=== PATIENT | female | born 1935 | race Caucasian/White ===

== ENCOUNTER 2016-12-29 06:54 | Day surgery (SDC) | payer MEDICARE, OTHER ==
[~2016-12-29] VITALS: Ht 165.1 cm; Wt 68.0 kg
[~2016-12-29 06:54] MED LIST: AZULFIDINE500 MG PO; CALTRATE 600600 MG PO; CENTRUM SILVER1 EAC3 PO; FISH OIL 1,0001 EAC2 PO; LEVOTHYROXINE75 MCG PO; LISINOPRIL2.5 MG PO; NORCO 5-325 TA1 EACH PO; VITAMIN C500 M1 PO
--- NOTE | 2016-12-29 10:04 | NUR ---
12[facility]29/16 [facility]4 [facility].
--- NOTE | 2017-02-03 10:25 | OR ---
[facility] [address] [place], [place] [address] Signed DATE OF PROCEDURE: 12/29/16 PREOPERATIVE DIAGNOSIS: Chronic ulcerative colitis. POSTOPERATIVE DIAGNOSES: Pancolitis, not acutely ulcerated or severely inflamed. No evidence of neoplasia. PROCEDURE: Total colonoscopy to cecum with biopsy. SURGEON: Abby Bermudez MD ANESTHESIA: Intravenous sedation, Fentanyl 100 mcg, Versed 6 mg. INDICATION A 81-year-old white woman, who is well known to me from the past. She is a patient of Dr. Rolando Carmona. She has had ulcerative colitis for many years. Her last colonoscopy was 3 years ago, showing no signs of dysplasia. Certain dietary and emotional triggers can make her symptoms recur with diarrhea, but she has had really no bleeding. She is taking Azulfidine 200 mg tablet three times daily and aggregate. She is here for surveillance colonoscopy on the basis of her chronic ulcerative colitis for greater than 20 years. Understands the risk of bleeding, infection, perforation, and so on. FINDINGS The prep was good. Complete colonoscopy was undertaken to the cecum. She clearly had chronic inflammatory changes, but no sign of ulceration proper, nor sign of neoplasia. Disease activity seemed worse in the cecum and right colon than in the left and rectum, but the entire colon was involved in fact. DESCRIPTION OF PROCEDURE The patient was brought to the endoscopy suite and placed in a lateral decubitus position. Given intravenous sedation to avoid slurred speech and nystagmus. Digital rectal examination was normal. An Olympus video colonoscope was passed in the rectum and manipulated throughout the colon, ultimately intubated in cecum itself. The prep was good. Irrigation was undertaken as necessary. The cecum appeared to have a dull chronic inflammatory appearance with no visualization of submucosal blood vessels and so on. Biopsies were obtained there. The scope was carefully withdrawn. Similar findings were noted throughout the remaining colon, though less pronounced in the rectum and sigmoid. Biopsies were taken throughout the colon to assess for dysplasia. Retroflex view was Electronically Signed By: ABBY BERMUDEZ MD 02/03/17 1025 PATIENT NAME: ZAKI ARZATE OPERATIVE REPORT DATE OF : 39 PHYSICIAN: ABBY BERMUDEZ MD REPORT #: [id number] REPORT IS CONFIDENTIAL AND NOT TO BE RELEASED WITHOUT AUTHORIZATION [facility] [address] [place] [id number] Signed normal except for some internal hemorrhoidal changes. The scope was removed. The patient was taken to recovery room in good condition. CONCLUDING DIAGNOSIS Chronic ulcerative colitis. No evidence of neoplasia development. PLAN Await pathology report for biopsies, unlikely to show dysplasia. She will continue with her current medical regimen for ulcerative colitis. We will see her back in a year and follow up sooner if needed. She will return to the ongoing care of Dr. Carmona. MD EVELYN Oviedo/Ishmael /[id number] cc: Rolando Carmona MD Electronically Signed By: ABBY BERMUDEZ MD 02/03/17 1025 PATIENT NAME: ZAKI ARZATE OPERATIVE REPORT DATE OF : 39 PHYSICIAN: ABBY BERMUDEZ MD REPORT #: [id number] REPORT IS CONFIDENTIAL AND NOT TO BE RELEASED WITHOUT AUTHORIZATION
== END 2016-12-29 10:41 | disposition home or self-care (01) ==
LOC: DS 06:54 → OPS 06:54 → DS 08:00 → OPS 10:41
PROVIDERS: Surgery
PROC: 0DBP8ZX Excision of Rectum, Via Natural or Artificial Opening Endoscopic, Diagnostic (ICD-10-PCS; 2016-12-29)
PROC: 0DBN8ZX Excision of Sigmoid Colon, Via Natural or Artificial Opening Endoscopic, Diagnostic (ICD-10-PCS; 2016-12-29)
PROC: 0DBG8ZX Excision of Left Large Intestine, Via Natural or Artificial Opening Endoscopic, Diagnostic (ICD-10-PCS; 2016-12-29)
PROC: 0DBL8ZX Excision of Transverse Colon, Via Natural or Artificial Opening Endoscopic, Diagnostic (ICD-10-PCS; 2016-12-29)
PROC: 0DBH8ZX Excision of Cecum, Via Natural or Artificial Opening Endoscopic, Diagnostic (ICD-10-PCS; principal; 2016-12-29 08:00)
DX: K52.832 Lymphocytic colitis (principal); K62.1 Rectal polyp; I10 Essential (primary) hypertension; E03.9 Hypothyroidism, unspecified; Z85.3 Personal history of malignant neoplasm of breast; Z87.891 Personal history of nicotine dependence; Z98.890 Other specified postprocedural states
CPT/HCPCS: 99152; 99153; J2250; J3010; J7120

== ENCOUNTER 2020-08-11 10:24 | Inpatient (IN) | payer MEDICARE, OTHER ==
[~2020-08-11] VITALS: Ht 165.1 cm; Wt 63.5 kg
--- OUTSIDE RECORDS SUMMARY | 2020-08-11 10:26 | XMS ---
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 Isra has no Care Guidelines for this patient. Damion VISIT COUNT (12 MO.) 1 VAISHALI Ruiz TOTAL 1 NOTE: Visits indicate total known visits. ED/C VISIT TRACKING (12 MO.) 08/11/2020 10:25 VAISHALI [place] TYPE: Emergency COMPLAINT: - SOB INPATIENT VISIT TRACKING (12 MO.) No inpatient visits to display in this time frame [email or web address]
[2020-08-11] MEDS ORDERED: LISINOPRIL10 MG PO (10:37)
[2020-08-11] MEDS ORDERED: LEVOTHYROXINE100 MCG PO (12:11)
--- NOTE | 2020-08-11 14:06 | NUR ---
PT ARRIVED TO UNIT VIA STRETCHER WITH LEAH PAYNE RN. REPORT RECEIVED. IV POTASSIUM CURRENTLY INFUSING. PT C/O BURNING LEFT ARM. ICE PACK PROVIDED. IV IN LAC AND RFA PATENT AND FLUSHING WELL. D5 NS INFUSING INTO LFA IV. BP ELEVATED @ 181/75, PT GIVEN 20 MG PO LISINOPRIL, HR 80'S.
--- NOTE | 2020-08-11 14:15 | NUR ---
PT STATES SHE FEELS LIKE SHE NEEDS TO HAVE A BM. THIS RN HELPED UP TO BSC, PT APPEARS STEADY ON FEET. DENIES DIZZINESS OR SOB. VOIDED 300 MLS CLEAR YELLOW URINE. PT UNABLE TO HAVE BM. SPENCER IN TO COMPLETE ECHOCARDIAGRAM. NO FURTHER NEEDS AT THIS TIME.
--- NOTE | 2020-08-11 15:31 | NUR ---
SECOND BAG OF IV POTASSIUM 10 MEQ INFUSING IN LAC IV. ICE PACK TO SITE HAS RELIEVED SOME OF THE PT'S PAIN. ECHO COMPLETED. PT RESTING IN BED. BP SLIGHTLY IMPROVED @ 163/75. PT REPORTS MILD GENERALIZED BODY ACHES. LUNG SOUNDS CLEAR BUL, COARSE BLL. PT SATING 98% ON 2 L NC. REPORTS FEELING INCREASED SOB W/ EXERTION. NO EDEMA NOTED IN BLE. VSS. PT REMAINS AFEBRILE. RESTING IN BED, CALL LIGHT IN REACH. CALLS APPROPRIATELY.
--- NOTE | 2020-08-11 17:00 | NUR ---
EVENING ASSESSMENT COMPLETE. DINNER ORDERED. PT HAS BEEN UP TO BATHROOM TO VOID. UNMEASURED. SBA, MINIMAL ASSISTANCE. DESATURATED TO 85% ON RA. BACK ON 1 L NC SATING 98%. PT GIVEN TYLENOL FOR GENERALIZED BODY ACHES. REMAIN AFEBRILE. FAMILY UPDATED BY RESCUE INSTRUCTORTAMMI. RESTING IN BED. ABLE TO ADJUST SELF WITH EASE. CALL LIGHT IN REACH.
--- NOTE | 2020-08-11 19:25 | NUR ---
SHIFT REPORT RECEIVED FROM IHSAN AVELAR. PT RESTING IN BED, WATCHING TV. NC @ 1L. SPO2 97%. SR @ 74. IV FLUIDS INFUSING PER ORDER. NO OTHER NEEDS AT THIS TIME. CALL LIGHT IN REACH.
--- NOTE | 2020-08-11 20:00 | NUR ---
DAUGHTER KEITH CALLED AND REQUESTED TO BRING IN PT'S CELL PHONE AND GLASSES TOMORROW PER PT.
--- NOTE | 2020-08-11 20:30 | NUR ---
ASSESSMENT, VS AND I&O COMPLETED. GCS 15, A&O X4. PT STATES SHE FEELS "VERY TIRED. i'VE NEVER FELT LIKE THIS." PT UP TO BR, SBA, BACK TO BED. SOB WITH ACTIVITY, SPO2 DROPS TO HIGH 80s ON 1L NC. LUNGS CLEAR IN UPPER LOBES, COURSE CRACKLES IN LOWER LOBES. ABD SOFT, NONTENDER, PT STATES NORMAL, BOWEL TONES ACTIVE. HEART TONES REGULAR, SR @ 74. IVs WNL, CDI, FLUSHED WELL. LEFT AC INFUSING IV FLUIDS ORDERED, LEFT FA SALINE LOCKED. CMS INTACT. NO EDEMA NOTED. PT PROVIDED IS AND ACCAPELLA WITH EDUCATION. URINE SAMPLE SENT TO LAB. SCHEDULED MED PROVIDED. PT DENIES PAIN AT THIS TIME. ASSISTED PT TO CALL DAUGHTERKEITH. ICE WATER PROVIDED. NO OTHER NEEDS AT THIS TIME. CALL LIGHT IN REACH.
--- NOTE | 2020-08-11 21:45 | NUR ---
PT RESTING IN BED, EYES CLOSED. RR 18, EVEN, UNLABORED. NC @ 1L. CALL LIGHT IN REACH.
--- NOTE | 2020-08-11 23:00 | NUR ---
PT RESTING IN BED, EYES CLOSED. RR 16, EVEN, UNLABORED ON 1L NC. IV FLUIDS INFUSING PER ORDER. CALL LIGHT IN REACH.
--- NOTE | 2020-08-12 00:15 | NUR ---
PT ASSESSMENT, VS AND I&O COMPLETED. PT DECLINES THE NNED TO USE BR AT THIS TIME. GCS 15, A&O X4. PT STATES SHE HAS 5/10 GENERALIZED PAIN, PRN PAIN MED PROVIDED. IVs WNL, CDI, IV FLUIDS INFUSING PER ORDER IN L AC. LUNGS CLEAR IN UPPER LOBES, COURSE CRACKLES IN LOWER LOBES. SPO2 93% ON 1L NC. ABD SOFT, NONTENDER, PT STATES NORMAL, BOWEL TONES ACTIVE. HEART TONES REGULAR, SR @ 84. CMS INTACT. NO OTHER NEEDS AT THIS TIME. CALL LIGHT IN REACH.
--- NOTE | 2020-08-12 01:00 | NUR ---
PT RESTING IN BED, EYES CLOSED. RR 14, EVEN, UNLABORED. CALL LIGHT IN REACH.
--- NOTE | 2020-08-12 02:20 | NUR ---
PT CALLS TO USE BR. UP TO BR, SBA, BACK TO BED. PT HAS SOB WITH ACTIVITY. NC @ 1L. SR @ 80. IV FLUIDS INFUSING PER ORDER. NEW BAG OF IV FLUIDS PROVIDED. NO OTHER NEEDS AT THIS TIME. CALL LIGHT IN REACH.
--- NOTE | 2020-08-12 03:00 | NUR ---
PT RESTING IN BED, EYES CLOSED. RR 14 ON 1L NC. IV FLUIDS INFUSING PER ORDER. CALL LIGHT IN REACH.
--- NOTE | 2020-08-12 04:00 | NUR ---
PT RESTING IN BED, EYES CLOSED. RR 19, EVEN, UNLABORED ON 1L NC. SR @ 80. IV FLUIDS INFUSING PER ORDER. CALL LIGHT IN REACH.
--- NOTE | 2020-08-12 04:24 | NUR ---
ASSESSMENT, VS AND I&O COMPLETED. GCS 15, A&O X4. PT APPEARS TO BE MORE WEAK SHE ADJUSTS SELF IN BED. WHEN ASKED IF SHE FEELS LIKE SHE IS WEAK COMPARED TO LAST NIGHT SHE SAYS "YES." NC 2 1L, PT TOLERATING WELL. LUNGS CLEAR IN UPPER LOBES WITH CRACKES IN LOWER LOBES. HEART TONES REGULAR, SR @ 86. ABD SOFT, NONTENDER, BOWEL TONES ACTIVE. CMS INTACT. PT DENIES SOB AT REST, SHE STATES IT "FEELS LIKE I CAN'T GET A DEEP BREATH." IS AND ACAPPELA EDUCATION PROVIDED. NO OTHER NEEDS AT THIS TIME. CALL LIGHT IN REACH.
--- NOTE | 2020-08-12 05:10 | NUR ---
PT IV PUMP ALARMING,IV FLUSHED, RESOLVED. PT REPOSITIONED. IV FLUIDS INFUSING PER ORDER. NC @ 1L. NO OTHER NEEDS AT THIS TIME. CALL LIGHT IN REACH.
--- NOTE | 2020-08-12 06:25 | NUR ---
NEW IV STARTED IN RIGHT FOREARM, LAB DRAW COMPLETED AND SENT TO LAB, FLUSHED WELL. IV FLUID INFUSING PER ORDER IN RIGHT FA. PT UP TO BR, SBA, BACK TO BED. NO OTHER NEEDS AT THIS TIME. CALL LIGHT IN REACH.
--- NOTE | 2020-08-12 07:37 | NUR ---
SHIFT REPORT RECEIVED. PT LAYING SUPINE, RESTING WITH EVEN UNLABORED BREATHING NOTED. NO APPARENT SIGNS OF DISTRESS.
--- NOTE | 2020-08-12 08:09 | NUR ---
ASSESSMENT COMPLETE. pt REPORTS FEELING "ACHY ALL OVER" DESPITE RECENT PRN TYLENOL ADMINISTRATION. SPO2 98-100% ON 1L NC. LUNG SOUNDS CLEAR UPPER, FINE CRACKLES BASES. pt DECLINES NEED TO VOID AT THIS TIME. SCHEDULED MEDS ADMINISTERED. VSS. SLIGHT COUGH NOTED. pt STATES THAT SHE WOULD LIKE TO TRY SOME MORE BROTH AND JELLO THIS AM. CALL LIGHT AND TELEPHONE PER REQUEST WITHIN REACH. NO FURTHER NEEDS AT THIS TIME.
--- NOTE | 2020-08-12 09:55 | NUR ---
IN ROOM FOR MED ADMINISTRATION AT 0900. pt CONTINUES TO FEEL WEAK AND REPORTS FEELING "HOT THEN COLD". ORAL TEMP 97.8F. pt HAS NOT BEEN UP TO VOID YET STATING THAT SHE DOES NOT NEED TO AT THIS POINT. pt CONTINUES TO REPORT NASAL CONGESTION. WALL HUMIDIFIER APPLIED FOR COMFORT OF NC. SPO2 95-98% ON 1L NC. REMDESIVIR HUNG INFUSING IN L AC. IVF INFUSING PER ORDER IN R FA. CHICKEN BROTH AND JELLO PROVIDED, WATER REFRESHED. NO FURTHER NEEDS AT THIS TIME.
--- NOTE | 2020-08-12 11:05 | NUR ---
CALL LIGHT ANSWERED. pt UP TO TOILET TO VOID. 600ML CLEAR YELLOW SOMEWHAT CONCENTRATED URINE. SBA BACK TO BED. PRN TYLENOL ADMINISTERED FOR GENERALIZED ACHES. IVF INFUSING ORDERED. REMDESIVIR FINISHED. NO FURTHER NEEDS AT THIS TIME. CALL LIGHT WITHIN REACH.
--- NOTE | 2020-08-12 13:10 | NUR ---
IN ROOM FOR EXTENDED TIME WITH pt. SCHEDULED MEDS ADMINISTERED. pt UP TO TOILET WITH SBA TO VOID. 350ML CLEAR YELLOW URINE. pt BRUSHED TEETH AND HAIR AT SINK WITHOUT O2. SBA BACK TO BED; SPO2 86% AFTER ACTIVITY. 1L NC REAPPLIED. WATER FRESHENED. ASSESSMENT COMPLETE. LUNGS SOUND CLEAR IN UPPER LOBES, DIM IN BASES. pt HAS BEEN HAVING A MOIST COUGH; SEEMINGLY UNPRODUCTIVE. pt REFUSED LUNCH BUT DID EAT SOME CRACKERS. pT STATES THAT SHE FEELS LIKE BEING UP "WENT BETTER THAN BEFORE". CALL LIGHT WITHIN REACH. NO FURTHER NEEDS AT THIS TIME.
--- NOTE | 2020-08-12 13:44 | NUR ---
PT ON PRECAUTIONS, WILL CONTINUE TO FOLLOW
--- NOTE | 2020-08-12 14:00 | NUR ---
Spoke with pt by phone. 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 He daughter lives next door and her grandson an great granddaughter live with her. Her daughter recently had covid, grandson and great granddaughter are not ill. She has multiple questions about isolation and I will call the Health Dept. and have them call her. She denies use of DME. She states she shares a kitchen and bathroom with Grandson and his child. She states she will not be able to isolate from them. She states she is not feeling well at all and has been taking chicken broth only. Grandson has bought her Boost for home and will assist her as he can. Pt plans on dc to home when medically stable.
--- NOTE | 2020-08-12 14:30 | NUR ---
Called and spoke with Kali at [facility]. UPdated pt has multiple questions of isolation for family living with her and also returning to work. Room number given with hospital phone number and he will call her.
--- NOTE | 2020-08-12 15:15 | NUR ---
PATIENT REPORT FROM TERE AVELAR INCLUDED: pt getting continued care for Covid. pt is a SBA and has been using her call light appropriately. pt is on 1L NC with exertion, pt does desat with exertion. pt has been getting electrolyte replacements due to Na, K, and Ca insufficiency. pt due to arrive within the next 10-30mins.
--- NOTE | 2020-08-12 15:50 | NUR ---
PATIENT BROUGHT TO ROOM BY TERE AVELAR + ASSESSMENT + MED PASS pt reports body aches and requests PRN tylenol, pt able to take med without difficulty. pt denies nausea at this time. pt assessment complete, BP still somewhat high at 168/72 otherwise VSS. pt denies further needs at this time, table and call light within reach.
--- NOTE | 2020-08-12 17:15 | NUR ---
MED PASS + VITALS pt reports reduced pain of 4/10 since tylenol admin. pt denies nausea at this time. pt able to take her evening med without difficulty. pt dinner set up for her on the table. pt VSS. pt o2sat 94% on RA at this time. pt refuses up to bathroom. pt given wet cloth for face. pt denies further needs at this time. table and call light within reach.
--- NOTE | 2020-08-12 19:42 | NUR ---
PATIENT RESTING QUIETLY IN BED, WATCHING TV, NO CURRENT NEEDS, CALL LIGHT IN REACH.
--- NOTE | 2020-08-12 21:30 | NUR ---
PATIENT RESTING IN BED, ICE WATER REFILLED. UNABLE TO AUSCULTATE LUNGS OR HEART DUE TO PAPR USE. PATIENT HAS TAKEN HER AMBIEN FOR SLEEP. VS ARE STABLE AND IV'S HAVE BEEN FLUSHED. PATIENT DENIED NEED TO USE THE RESTROOM AND HAS NO FURTHER NEEDS AT THIS TIME. CALL LIGHT IS IN REACH.
--- NOTE | 2020-08-12 22:22 | NUR ---
PATIENT CALLED FOR A WARM BLANKET AND THIS WAS GIVEN. ENTERED ROOM IN PAPR THIS NURSE HAS BEEN AND WILL BE DOING THE REST OF THE NIGHT. PATIENT HAD NO OTHER NEEDS AT THIS TIME CALL LIGHT IN REACH.
--- NOTE | 2020-08-12 22:58 | NUR ---
PATIENT RESTING QUIETLY, EYES CLOSED, RESPIRATIONS REGULAR AND EVEN, SATS 92% ON RA AND HR=63 PER TELE, CALL LIGHT IN REACH.
--- NOTE | 2020-08-13 00:12 | NUR ---
IN PATIENT ROOM TO ASSIST PATIENT TO THE BATHROOM. PATIENT WALKED SLOW, YET STEADY ON HER FEET TO BATHROOM. SBA PATIENT HELD IV POLE. BACK TO BED AFTER BATHROOM. NASAL CANULA PLACED IN PATIENT NOSE AND TURNED UP TO 2L FROM 1L PER RN RANGEL DIRECTION. PATIENT INSTRUCTED TO LEAVE NASAL CANULA ON WHILE SLEEPING. CALL LIGHT IN REACH. PATIENT DENIES ANY FUTHER NEEDS AT THIS TIME.
--- NOTE | 2020-08-13 01:05 | NUR ---
PATIENT HAS MAINTAINED SATS OF 95% OR BETTER SINCE 2L/NC O2 PLACED ON PATIENT AT 0012. PATIENT HAD 1L/NC THAT SHE COULD USE, BUT USE WAS INTERMITTENT AND WHEN PATIENT IS SLEEPING SHE WOULD OFTEN DROP INTO THE 80'S, PATIENT WOULD RECOVER SHORTLY FROM DESATING, BUT 2L/NC HAVE KEPT SATS UP EVEN WHILE SLEEPING. PATIENT RESTING QUIETLY, EYES CLOSED, RESPIRATIONS REGULAR AND EVEN, CALL LIGHT IN REACH.
--- NOTE | 2020-08-13 03:01 | NUR ---
PERFORMING ROUNDS AND PATIENT IS AWAKE. PATIENT INFORMED THIS NURSE SHE WAS OK AND HAD NO NEEDS AT THIS TIME, SHE JUST WOKE UP FOR A MINUTE AND IS TRYING TO GO BACK TO SLEEP. CALL LIGHT IS IN REACH.
--- NOTE | 2020-08-13 03:21 | NUR ---
PT CALLED, SHE FELT LIKE SHE HAD TOO MANY BLANKETS AND HER TELE WIRES WERE TANGLED, ASST PT WITH THESE ITEMS, PT STATED PT COULD USE THE TOILET BUT NOT RIGHT AWAY AND WILL CALL WHEN READY, NO FURTHER NEEDS AT THIS TIME
--- NOTE | 2020-08-13 03:40 | NUR ---
IN TO GET PT TO WEAR O2 NC PER RN, ALSO CHANGED PT TELE BATTERY, NO FURTHER NEEDS, RN IN RM SHORTLY
--- NOTE | 2020-08-13 04:22 | NUR ---
PATIENT UP TO THE BATHROOM 1PSBA, PATIENT VOIDED AND HAD SOME DIARRHEA, AND 1PSBA BACK TO BED. ATIENT FEELING BETTER. PATIENT TITRATED DOWN TO 1L/NC AND IS CURRENTLY AT 99%. CALL LIGHT IS IN REACH.
--- NOTE | 2020-08-13 06:06 | NUR ---
ASSISTED PATIENT TO BATHROOM. SBA TO BATHROOM. PATIENT WAS FAR MORE DRAMATIC VERBALLY ABOUT HER STRUGGLE AMBULATING THAN IT LOOKED LIKE SHE NEEDED TO BE SHE APPEARED STEADY ON HER FEET. NASAL CANULA TURNED UP TO 4L WHEN UP MOVING. CALL LIGHT IN REACH. PATIENT DENIES ANY FUTHER NEEDS AT THIS TIME.
--- NOTE | 2020-08-13 06:24 | NUR ---
PATIENT WAS ABLE TO SLEEP WHEN NOT GOING TO THE RESTROOM OR HAVING TO BE AWAKE FOR STAFF DUTIES. PATIENT HAD TO BE TITRATED UP TO 4L/NC WHEN USING THE BATHROOM. PATIENT HAS DYSPNEA WITH EXERTION. PATIENT WAS DESATING SOME DURING THE NIGHT INTO THE 80'S AND WENT TO 2L/NC JUST AFTER MIDNIGHT. PATIENT BACK AT 1L/NC AT THIS TIME AND SATS 93% WITH A HR=66 ON TELE. UNABLE TO AUSCULTATE LUNG, HEART, OR BOWEL TONES DUR TO WEARING A PAPR ALL THIS SHIFT. PATIENT RESTING IN BED AT THIS TIME WITH A NEW WARM BLANKET, NEW ICE WATER, AND APTIENT'S LABS WERE DRAWN AND SENT. CALL LIGHT IN REACH.
--- NOTE | 2020-08-13 08:50 | NUR ---
IN TO GIVE PT'S MORNING MEDICATIONS. ASSESSMENT COMPLETED. PT UP TO BATHROOM. ABLE TO VOID, MISSED HAT. ENCOURAGING PO INTAKE. PT ATE APPROX 40% OF BREAKFAST. GIVEN TYLENOL FOR GENERALIZED BODY ACHES. PT HAS REMAINED AFEBRILE. VSS. LUNG SOUNDS ARE CLEAR, DIMINISHED IN BASES. ENCOURAGED HOURLY USE OF INCENTIVE SPIROMETER, AT BEDSIDE. PT BACK IN BED RESTING. REFUSING TO GET UP IN CHAIR AT THIS TIME. CALL LIGHT IN REACH.
--- NOTE | 2020-08-13 10:30 | NUR ---
IN TO HELP PT TO BR. SBA ASSIST, PT AMBULATING WELL. REMAINS ON 1 L NC SATING 95%, DESATS TO 89-90% W/ ACTIVITY. PT VOIDED 150 MLS CLEAR YELLOW URINE. ALSO HAD LOOSE BM, PT REPORTS BM'S ARE USUALLY LOOSE D/T ULCERATIVE COLITIS. PT BACK TO BED. LUNCH ORDERED. CALL LIGHT IN REACH. NO OTHER NEEDS AT THIS TIME.
--- NOTE | 2020-08-13 11:54 | NUR ---
PT UNDER PRECAUTIONS, SEEMS TO BE IMPROVING. WILL FOLLOW NEEDED
--- NOTE | 2020-08-13 12:35 | NUR ---
PT UP TO CHAIR FOR LUNCH. PROVIDED WARM BLANKET. FACE WASHED W/ WARM WASHCLOTH. NO OTHER NEEDS. CALL LIGHT IN REACH.
--- NOTE | 2020-08-13 14:00 | NUR ---
In to help pt to bathroom from chair. Voided 150 mls and had soft/loose BM. Pt helped back to bed per pt request. Pt C/O generalized body aches. Tylenol given. PO intake is improving, ate 50% of her lunch. No other needs. Call light in reach.
--- NOTE | 2020-08-13 15:00 | NUR ---
report given to Lucita and Michelle AVELAR who are resuming care of pt.
--- NOTE | 2020-08-13 15:22 | NUR ---
PATIENT NOT DISCHARGING TODAY, STILL RECEIVING COVID IV TREATMENT. NO CHANGE IN DISCHARGE PLAN.
--- NOTE | 2020-08-13 16:13 | NUR ---
REPORT RECEIVED FROM DINORAHRN AND PT. CARE RESUMED. PT. STATES SHE JUST FEELS "CRAPPY" AND SHE HAS BODYACHES ALL OVER. LUNGS DIM. IN THE BASES. IV SITES WNL AND FLUSH WELL. PT. REPORTS HAVING DIARRHEA THAT IS WORSE THAN NORMAL. ADMIN. P.O. MED. FOR COLITIS. PT. LEFT RESTING IN BED WITH CALL LIGHT IN REACH.
--- NOTE | 2020-08-13 17:57 | NUR ---
PATIENT REPORTS BODYACHES ALL OVER AND ADMIN. TYLENOL AT 1400. ON RA WHILE RESTING. PT. STATES HER DIARRHEA FROM COLITIS HAS WORSENED AND HAS HAD 4 LOOSE BM'S THIS SHIFT. PT. WEAK AND IS A 1 PERSON STANDBY ASSIST. PLACED ON 2L NC WHILE AMBULATING. PT. DESATS WITH EXERTION.
--- NOTE | 2020-08-13 18:27 | NUR ---
ROUNDING ON NURSE AND PT. REQUESTED TO GO TO THE BATHROOM. PLACED ON 2L O2 NC WHILE AMBULATING. PT. BRUSHED HER TEETH STANDING AND THEN VOIDED 375ML CLEAR YELLOW URINE. LEFT ARM IV LEAKY AND DC'D. CATH INTACT. PT. DENIED FURTHER NEED AND O2 REMOVED. PT. LEFT RESTING IN BED WITH CALL LIGHT IN REACH.
--- NOTE | 2020-08-13 19:37 | NUR ---
on room air, up to br, had LARGE LIQUID STRONG SMELLING BM, STATED "i HAVE COLITIS, IT FLARES UP WHEN IM UPSET, AND IM SICK RIGHT NOW". BACK TO BED, GOT UP ON ROOM AIR WAS 98%, ON RETURN WITH SOB WAS 87-89%, PLACED ON O2 1L NC, INMEDIATELY WENT UP TO 95-97%. BACK TO ROOM AIR, CURRENTLY 96%, COOP WITH ASSESSMENT, SL INTACT
--- NOTE | 2020-08-13 21:04 | NUR ---
Up to br, voided small amount of urine, had small liquid strong smelling bm, lotion to joanne area. does own self care. Back to bed, on room air sats on return 90%. slight sob with exertion. Medicated with Tylenol 500mg po c/o 2/10 generalized aches. Back to bed, on room air
--- NOTE | 2020-08-14 01:10 | NUR ---
Pt on room air, resting, eyes closed, O2 sats as per teleCPOX dropped to 84%,placed on O2 1LNC, sats up to 95% inmediately. denies c/o pain. repositions self in bed. Tele#[address]
--- NOTE | 2020-08-14 05:33 | NUR ---
coop with assessment, on 1L nc O2. sats 97-100%, Up to br, voided. slight sob on returning from br,recuperated quickly. back to bed. no c/o pain, tele#[address]
--- NOTE | 2020-08-14 05:52 | NUR ---
On room air most of this shift, on 1L NC when up to BR as she gets sob with exertion , O2 off at this time at her requests. lungs dim at bases, moist productive cough present. 1PA when up to br, voiding QS, and having liquid bm's. sl patent. on covid+ precautions.
--- NOTE | 2020-08-14 09:30 | NUR ---
REPORT RECEIVED FROM NIGHT RN AND PT. CARE RESUMED. PT. REPORTS ALL OVER BODY ACHES. ADMIN. PRN TYLENOL. LUNGS DIM. IN THE RIGHT BASE. IV SITE WNL AND FLUSHES WELL. PT. ORIENTED TO ALL BUT DATE. PT. AMBULATED TO THE BATHROOM WITH 1P SBA AND PLACED ON 2L OF 02 NC WHILE AMBULATING. VOIDED 150ML CLEAR YELLOW URINE. PT. HAS A DRY COUGH. TAKEN OFF OF O2 WHILE IN BED, BUT DESAT. TO 82% AFTER COUGHING. PLACED BACK ON 2L 02 AND 02 SAT RETURNED TO 90'S. DISCUSSED HAVING A SHOWER AND SITTING UP IN THE CHAIR BEFORE LUNCH. PT. LEFT RESTING IN BED WITH CALL LIGHT IN REACH.
--- NOTE | 2020-08-14 10:54 | NUR ---
PATIENT EDUCATED ABOUT PRONING. HESITANT BECAUSE OF COMFORT, BUT EXPRESSED WILLINGNESS TO TRY AFTER LUNCH. PT. AMBULATED TO THE BATHROOM AND VOIDED 475ML CLEAR YELLOW URINE. BEDDING CHANGED AND PT. ASSISTED WITH POSITIONING IN THE CHAIR. PT. LEFT RESTING IN CHAIR WITH CALL LIGHT IN REACH.
--- NOTE | 2020-08-14 11:40 | NUR ---
this rn reviewed jameel trujillo's charting and agrees with her assessment
--- NOTE | 2020-08-14 13:17 | NUR ---
PATIENT REPORTS 5/10 PAIN DUE TO BODYACHES. ADMINISTERED P.O. TYLENOL. PT. AMBULATED WITH SBA TO BATHROOM ON 2L NC AND TOLERATED WELL WITHOUT DESAT'ING. PT. BRUSHED HER TEETH. BACK TO BED AND O2 WAS TITRATED TO 1L AND O2 SAT. REMAINED IN THE 90'S. PT. LUNGS DIM. IN THE BASES AND RESPIRATIONS UNLABORED. VITAL SIGNS STABLE. PT. FINISHED 60% OF LUNCH AND APPETITE SEEMS IMPROVED. PT. RESTING IN BED WITH CALL LIGHT IN REACH.
--- NOTE | 2020-08-14 16:31 | NUR ---
PATIENT HAD A LOOSE BM. AMBULATED TO THE BATHROOM WITH STANDBY ASSIST. STATES THAT HER LEGS FEEL WEAK. PT. UP TO THE CHAIR. O2 SAT IS 96% AND TAKEN OFF OF NC O2. O2 SAT REMAINS IN THE 90'S. PT. DISCUSSED HAVING A SHOWER THIS EVENING. PT. LEFT RESTING IN BED WITH CALL LIGHT IN REACH.
--- NOTE | 2020-08-14 17:38 | NUR ---
PATIENT BODYACHES ALLOVER AND ADMIN. PO TYLENOL 500MG. SHE IS EATING DINNER IN HER CHAIR, BUT DOES NOT HAVE MUCH APPETITE. CALL LIGHT IN REACH.
--- NOTE | 2020-08-14 17:39 | NUR ---
PATIENT CONTINUES TO HAVE BODYACHES ALL OVER AND REQUESTS TYLENOL WHEN DUE. PT. HAS LOOSE STOOLS AND HX OF ULC. COLITIS. ON ROOM AIR AND 02 SAT. IN THE 'S. HAS BEEN ON 2L O2 NC WHILE AMBULATING. AMBULATES WITH 1 PERSON SBA AND IS WEAK. ENCOURAGE PRONING, SIDE SLEEPING, AND CHAIR. PT. ORIENTED AND USES CALL LIGHT APPROPRIATELY.
--- NOTE | 2020-08-14 20:34 | NUR ---
Up to br, voiding QS dark yellow urine, had small liquid bm. On room air, tele cpox inplace, sats prior to getting up 95%. SOB from br to bed, was 88%, back to bed, declines O@, sats went up to 93% right away. Lungs dim at bases with insp crackles t/o. c/o just feeling tires on return but denies actual sob. sl intact. reposions self in bed HOB elevated, proning encouraged but declined, dry non prod cough at this time. c/o mild aches, but ok. tolerating liquids and diet well. no n/v. uses call light appropriately
--- NOTE | 2020-08-14 22:35 | NUR ---
PATIENT O2 STAT WAS LOW AND WAS NOT RECOVERING. RN NIECY INSTRUCTED ME TO HELP PUT NASAL CANULA BACK ON PATIENT. WHILE IN ROOM PATIENT REQUESTED TO USE RESTROOM. SBA ASSIST TO BATHROOM. BACK TO BED. NASAL CANULA ON AT 1L WHEN THIS METAL ENGRAVER LEFT ROOM. PATEINT DENIES ANY FUTHER NEEDS.
--- NOTE | 2020-08-15 | NUR ---
RESTING, NO DISTRESS, O2 1LNC, IN PLACE, CPOX 96%. CALL LIGHT AT HANDS REACH, CONTINUES TO BE ON ISOLATION PRECQUTIONS
--- NOTE | 2020-08-15 00:52 | NUR ---
RESTING, O2 1LNC, CPOX READING 93%, HOB ELEVATED IN BED, REPOSITIONS SELF, CALL LIGHT AND FLUIDS AT BEDSIDE
--- NOTE | 2020-08-15 03:57 | NUR ---
Rsting, eys closed, on room air again, cpox reading 90%. no distress, call light and fluids at bedside. tele#3. on isolation precautions
--- NOTE | 2020-08-15 05:12 | NUR ---
up to br, voided, had liquid bm, back to bed, O2 1L NC when up to br. no sob noted, more independent, less weak,
--- NOTE | 2020-08-15 05:51 | NUR ---
Pt has slept tonight, states she feel better, much improved gait and stamine, pt has been medicated with Tylenol 500mg po per generalized aches with good to fair relief. 1pa, has voided QS and has had liquid bm's. tolerating liquids well, no emesis. slpatent. Pt gets O2 1LNC when up to br as she desats down to low 80%, on room air other pickett. tele cpox in place, sats 95%. repositions self in bed.
--- NOTE | 2020-08-15 07:45 | NUR ---
PT CALLED FOR BATHROOM, SBA, PT O2 SATS 83% UPON RETURNING TO BED, OXYGEN PLACED AND PT RECOVERED TO 93% QUICKLY. LUNG SOUNDS CLEAR, LOOS PRODUCTIVE COUGH. PT DENIES OTHER NEEDS AT THIS TIME.
--- NOTE | 2020-08-15 08:54 | NUR ---
REPORT RECEIVED FROM NIGHT RN AND PT. CARE RESUMED. PT. REPORTS LESS BODYACHES AND SLEPT WELL. STILL REPORTS WEAKNESS BLE WHILE AMBULATING THAT IS NOT NORMAL FOR HER. IV SITE WNL AND FLUSHES WELL. ON 1L OF NC AND O2 SAT 94%. LUNGS DIM. IN BASES. PT. STATES SHE HAS MORE OF AN APPETITE TODAY. DISCUSSED HAVING A SHOWER THIS MORNING. PT. LEFT RESTING IN BED WITH CALL LIGHT IN REACH.
--- NOTE | 2020-08-15 11:17 | NUR ---
PATIENT ASSISTED WITH SEATED SHOWER. REMOVED CPOX, BUT REMAINED ON 1L 02 NC. PT. BRUSHED HER TEETH. AMBULATED WITH 1 PERSON SBA. DESAT. TO 87% AFTER SHOWER AND RETURNED TO 90'S AFTER REST. ADMIN. PO POTASSIUM AND LEFT RESTING IN CHAIR WITH CALL LIGHT IN REACH.
--- NOTE | 2020-08-15 13:36 | NUR ---
PO MED GIVEN. VITALS STABLE. PT. O2 SAT IS 98% ON 2L NC. TITRATED TO 1L NC. PT. AMBULATED WITH 1PERSON SBA TO THE BATHROOM AND BACK. VOIDED. PT. BACK TO BED AND DENIES PAIN. LUNGS DIM. IN RLL. PT. ATE HALF OF HER LUNCH. IV SITE WNL AND SALINE LOCKED. NO EDEMA. PT. LEFT RESTING IN BED WITH CALL LIGHT IN REACH.
--- NOTE | 2020-08-15 17:58 | NUR ---
PATIENT AMBULATED TO THE BATHROOM WITH SBA ON 1L O2. TOLERATED WELL AND VOIDED 400ML CLEAR YELLOW URINE. IN THE CHAIR FOR DINNER AND TAKEN OFF O2 NC. 02 SAT 91%. PT. BROUGHT DINNER AND LEFT RESTING IN CHAIR WITH CALL LIGHT IN REACH.
--- NOTE | 2020-08-15 20:13 | NUR ---
PATIENT CALLED [employer] TO USE RESTROOM. PATIENT WAS ALREADY UP AND IN BATHROOM WHEN THIS HABITAT MANAGEMENT COORDINATOR ENTERED ROOM. I TOLD PATIENT THAT SHE IS NOT TO GET UP WITHOUT A NURSING STAFF IN THE ROOM WITH HER. PATIENT SAID "I JUST COULD NOT WAIT". I ENCOURAGED PATIENT TO CALL WITH ENOUGH TIME FOR STAFF TO PUT ON PPE AND ENTER ROOM. PATIENT SAID SHE UNDERSTOOD. SBA ASSIST BACK TO BED. DENIES ANY FURTHER NEEDS AT THIS TIME. CALL LIGHT IN REACH.
--- NOTE | 2020-08-15 20:38 | NUR ---
voided a few minutes ago QS. tolerated walking back to bed well. On room air, coop with assessment, lungs dim at bases, no cough or sob at this time. tele cpox in place. c/o / generalized body aches but better. "I feel much better" tolerating fluids and diet well. much improved skin color and gait, uses call light appropriately. Continues on respiratory isolation precautions
--- NOTE | 2020-08-15 23:09 | NUR ---
resting, eyes closed, O2 1L NC was placed on as pt had been sleeping soundly and desatted to 86-88% on room air during her sleep. O2 1LNC on at this time as per tele cpox sats are 93-96%. call light and fluids at bedside
--- NOTE | 2020-08-16 02:02 | NUR ---
awake, up to br, tolerated well, declined O2 when up to br, dessatted to 80-85%, recuperated easily once in bed and O2 1L NC appliad, sats 93%, Repositins self in bed. tolerating fluids well, no c/o pain. No c/o CP
--- NOTE | 2020-08-16 06:19 | NUR ---
Pt on room air off and on. 1LO2 NC when up to br as she desats, recuperates easily once returning to bed. tele cpox in place. Lungs dim at bases. slight sob on return at times. Improved gait and affect. "I feel better staes, not as achy". Has been medicated with Tylenol with good relief. Tolerating liquids and diet, no n/v. SL patent. 1PA. has voided QS and had liquid bm. uses call light appropriately.
--- NOTE | 2020-08-16 07:27 | NUR ---
REPORT RECEIVED. PT AWAKE IN BED. VISIBLE THROUGH DOOR. AIRBORN PRECATIONS IN PLACE. RESPIRATIONS LOOK EVEN AND UNLABORED. 1L NC IN PLACE. TELE CPOX ON W/ SATURATURATIONS AT 95% CALL LIGHT IN REACH.
--- NOTE | 2020-08-16 08:40 | NUR ---
ASSESSMENT COMPLETED. PT ASSITED TO BATHROOM THEN TO CHAIR FOR BREAKFAST. PT WORKING ON INCENTIVE SPEROMETER INDEPENDENTLY. TITRATED TO RA. DAURATIONS 90-92%. LUNGS SOUND CLEAR. PT COUGH IS PRODUCTIVE WITH MODERATE AMOUNT OF SPUTUM. HEART SOUNDS REGULAR. NO OTHER CONCERNS. BREAKFAST AT BEDSIDE. DENIES PAIN OR NEEDS. CALL LIGHT IN REACH.
--- NOTE | 2020-08-16 10:48 | NUR ---
PT REQUESTING TYLENOL FOR 3/10 GENERAL PAIN. TYLENOL ADMISNTERED. ASSISTED STAND BY TO BATHROOM FOR SMALL VOID THEN TO BED PER PT REQUEST. PT ON RA WHILE AMBUALTING TO BATHROOM. TOERLATED WELL WITH NO SOB. SPO2 WAS 91-95%. ONCE PT WASHED HANDS SATURATIONS DECREASED TO 77%, I BELIEVE D/T FINGER PROBE BEING WET. ONCE TO BED PROBE REMOVED AND CLEANED. OXYGEN PLACED TO 4L JUST IN CASE IT WAS NOT PROBE BEING WET. ONCE PROBE WAS REPLACED SATURATIONS CAME TO 96%. PT TITRATED BACK TO RA AND SATURATIONS ARE NOW MANTAINED AT 92-94% ON RA WITH GOOD PLETH. CALL LIGHT AND PERSONAL ITEMS WITHIN REACH.
--- NOTE | 2020-08-16 12:00 | NUR ---
PHYSICAL THERAPY IN WORKING WITH PT.
--- NOTE | 2020-08-16 12:16 | NUR ---
LUNCH PROVIEDED. PT REPORTS TYLENOL IMPROVED GENERAL PAIN. SITTING IN BED EATING. ON RA. CALL LIGHT IN REACH.
--- NOTE | 2020-08-16 13:16 | NUR ---
PT MOVED TO M/S-STILL UNDER PRECAUTIONS. WILL FOLLOW
--- NOTE | 2020-08-16 14:23 | NUR ---
SPOKE WITH PATIENT BY PHONE DUE TO COVID DIAGNOSIS AND ISOLATION. PATIENT IS FEELING BETTER, HOPES TO GO HOME TOMORROW. SHE STATES SHE IS GETTING UP IN THE ROOM, NOT USING ANY DME FOR AMBULATION. SHE STATES SHE DID NEED A LITTLE OXYGEN AT NIGHT, IS NOT SURE IF SHE NEEDS IT TO GO HOME. SHE DOES NOT SMOKE. SHE STATES SHE WILL GO HOME WITH FAMILY, HER DAUGHTER JUST HAD COVID, SHE STATES IT IS WHERE SHE PROBABLY GOT IT. OTHER FAMILY THAT LIVE IN THE HOUSE WITH HER HAVE BEEN QUARANTINED. SHE STATES THEY ARE FINE WITH HER RETURNING. SHE STATES SHE WAS TOLD SHE NEEDS TO ISOLATE UNTIL THE . SHE STATES HER FAMILY WILL BE WEARING MASKS AND SHE WILL TOO IN COMMON ARE[place]. SHE STATES SHE PLANS TO STAY IN HER ROOM MUCH POSSIBLE. FAMILY WILL BE FIXING FOOD FOR HER. SHE HAS A WALKER AT THE HOUSE IF SHE NEEDS IT, BUT SHE DOESN'T FEEL SHE WILL. SHE STATES SHE OVERALL DOES FEEL MORE TIRED AND WEAK THAN USUAL. EXPLAINED SHE MIGHT FEEL THIS WAY FOR SEVERAL WEEKS. ASKED IF SHE HAS SPOKEN WITH THE HEALTH DEPARTMENT. SHE STATES SHE HAS, NOT TODAY BUT SEVERAL TIMES. SHE STATES HER GRANDSON IS USING SPECIAL MAP COMPILER AND MAKING SURE EVERYONE IS WASHING HANDS, MASKS ETC. SHE FEELS SHE IS READY TO GO HOME. DISCUSSED WITH HER TO LET NURSES KNOW IF ANYTHING COMES UP SHE IS CONCERNED ABOUT IN HER DISCHARGE. SHE STATES SHE WILL. DISCUSSED WITH HER THAT IF SHE ENDS UP NEEDING OXYGEN, WE WILL ARRANGE THAT BEFORE SHE GOES HOME. SHE HAS NO FURTHER QUESTIONS.
--- NOTE | 2020-08-16 15:06 | NUR ---
ASSISTED PT TO BATHROOM TO VOID, THEN UP TO CHAIR. CALL LIGHT IN REACH. DENIES NEEDS.
--- NOTE | 2020-08-16 15:17 | NUR ---
PATIENT SITTING IN CHAIR TALKING ON PHONE. VITALS AND I&O'S CHARTED. CALL LIGHT IN REACH. NO FURTHER NEEDS AT THIS TIME.
--- NOTE | 2020-08-16 18:32 | NUR ---
ASSISTED PT BACK TO BED, CPOX IN PLACE. SATURATIONS DECREASED TO 84% BUT QUICKLY RECOVERED WITHOUT OXYGEN. CALL LIGHT AND PERSONAL ITEMS WITHIN REACH,
--- NOTE | 2020-08-16 20:00 | NUR ---
up to br, voided qs, yellow urine, no bm, back to bed, independent, in room air, sl patent. lungs clear bilat. on swing bed/transitinal care status, states 'i feel so much better', tolerating fluids and diet well, no n/v, c/o 2/10 generalized aches, will medicated with Tylenol po
--- NOTE | 2020-08-16 20:00 | NUR ---
IN BED, ROOM AIR. UP TO BR VOIDED, BACK TO BED, O2 1LNC, BACK TO BED, TOLERATED WELL, COOP WITH ASSESSMENT. TELE CPOX IN PLACE. REPOSITONS SELF, SL
--- NOTE | 2020-08-16 23:34 | NUR ---
Up to br, 1pa sba, O2 1LNC when up to br, tolerated well, back to bed, voiding qs., call light at bedside
--- NOTE | 2020-08-17 01:00 | NUR ---
Resting, room air, tele cpox in place, turns and repositons selg, uses call light appropriately
--- NOTE | 2020-08-17 03:27 | NUR ---
awakes easily, tele cpov in place, in room air, sats 90%
--- NOTE | 2020-08-17 05:47 | NUR ---
Pt has slept this shift. alternating between room air and 1LNC when up to br and sometimes when in deep sleep as she desats to mid 80's%, currently on room air tele cpox in place readings 90%. hob elevated. lungs sounds clear, continues to have moist productive cough. voiding QS, 1PA/ when up to br, repositions self in bed. Pleasant and coop. affect much improved
--- NOTE | 2020-08-17 07:04 | NUR ---
RECIEVED REPORT. PT AWAKE IN BED WATCHING TV. PT IS ON RA. SPOS 92% ON TELE CPOX. CALL LIGHT IN REACH. RESPIRATIONS EQUAL AND NONLABORED. AIRBORN PRECAUTIONS IN PLACE.
--- NOTE | 2020-08-17 09:33 | NUR ---
ASSESSMENT COMPLETED. PT ON RA. CPOX IN PLACE SPO2 AT 90% ON RA. PT UP IN CHAIR FOR BREAKFAST. PT ANXIOUS TO GO HOME. PT DENIES SOB, OR CHEST PAIN. NO CONCERNS. CALL LIGHT IN REACH.
--- NOTE | 2020-08-17 09:42 | NUR ---
ORDERS PLACE FOR HOME O2 QUALIFY. RESPITORY THERAPY NOTIFIED.
--- NOTE | 2020-08-17 11:00 | NUR ---
Attempted to see pt x 3, she was on the phone. Was able to knock on her window and let her know I would call her. She states plans on dc for her today. She has had her 02 qualifier. I am awaiting the Rx for 02. Pt states she will be going home with her grandson and he will leaf size picker her Rx's. He lives with her and will grocery shop. Infor faxed to [facility].
[2020-08-17] MEDS ORDERED: MELATONIN3 MG PO (11:21)
[2020-08-17] MEDS ORDERED: POTASSIUM CHLO10 MEQ PO (11:40)
--- NOTE | 2020-08-17 12:20 | NUR ---
PT SITTING UP IN CHAIR FOR LUNCH. PORTABLE OXYGEN TANK TO PT BEDSIDE FOR DISCHARGE.
--- NOTE | 2020-08-17 12:38 | NUR ---
DISCHARGE INSTRUCTIONS PROVIDED. PT WITH NO QUESTIONS.
--- NOTE | 2020-08-17 14:00 | NUR ---
Call from [facility] and pt has not met her deductible for medicare and will have to pay some money out of pocket for 02. I asked pt to call [facility] and she states she doesn't have a pen to write the number. Informed I will bring her the number. Number written and stuck on a sticky pad on the window of pt's room.
--- NOTE | 2020-08-17 14:29 | NUR ---
PT APPEARS TO BE IMPROVING-STILL WITH PRECAUTIONS. WILL FOLLOW NEEDED
--- NOTE | 2020-08-17 17:04 | NUR ---
Chart faxed to [facility] after calling Cari. Face sheet, dc summary, progress notes, H&P, PT eval/notes.
== END 2020-08-17 16:00 | disposition home or self-care (01) | DRG 177 ==
LOC: ED 10:24 → MS 12:06 → CCU 12:06 → MS 08-12 15:50
PROVIDERS: ADMIT Internal Medicine; ATTEND Internal Medicine
PROC: XW033E5 Introduction of Remdesivir Anti-infective into Peripheral Vein, Percutaneous Approach, New Technology Group 5 (ICD-10-PCS; principal; 2020-08-11)
DX: U07.1 COVID-19 (principal); J12.82 Pneumonia due to coronavirus disease 2019; J96.01 Acute respiratory failure with hypoxia; E87.1 Hypo-osmolality and hyponatremia; K51.90 Ulcerative colitis, unspecified, without complications; A08.39 Other viral enteritis; E87.6 Hypokalemia; E86.1 Hypovolemia; I10 Essential (primary) hypertension; E03.9 Hypothyroidism, unspecified; Z79.899 Other long term (current) drug therapy
CPT/HCPCS: 71045; 80048; 80053; 83735; 83880; 83930; 83935; 84484; 84550; 85025; 93306; 94667; 94761; 96374; 97110; 97116; 97161; 99285-25; J1100; J1650; J3480; J7040; J7042; J7050; J8540

== ENCOUNTER 2023-01-26 10:53 | Inpatient (IN) | payer MEDICARE, OTHER ==
[~2023-01-26] VITALS: Ht 165.1 cm; Wt 55.2 kg
[2023-01-26] VITALS (9 sets, daily range): BP systolic 99–136; BP diastolic 45–59
[~2023-01-26 10:53] MED LIST changes: +LEVOTHYROXINE100 MCG PO; +LISINOPRIL10 MG PO; +MELATONIN3 MG PO; +POTASSIUM CHLO10 MEQ PO
[2023-01-26 12:05] LABS: HEMOGLOBIN 14.2 g/dL (12.0-18.0); MCH 33.1 (27-36); MCHC 32.9 g/dl (30-36); MCV 100.5 fl (81-99); PLATELET COUNT 409 K/uL (140-440); RBC 4.28 M/ul (4.3-5.7); RDW 13.6 (10.5-15.0)
[2023-01-26 12:11] LABS: ALBUMIN 3.6 g/dL (3.4-5.0); ALBUMIN/GLOBULIN RATIO 0.71 (1.1-2.4); ANION GAP 16.4 (7-21); BILIRUBIN, TOTAL 1.2 ng/dL (0.2-1.0); BUN/CREATININE RATIO 18.7 (6.0-28.6); CALCIUM 10.4 mg/dL (8.5-10.1); CREATININE, SERUM 1.39 mg/dL (0.55-1.02); POTASSIUM 4.4 mmol/L (3.5-5.1); PROTEIN, TOTAL 8.7 g/dL (6.4-8.2)
[2023-01-26 12:47] LABS: BILIRUBIN, URINE POSITIVE (negative); BLOOD/HGB, URINE NEGATIVE (Negative); KETONE, URINE TRACE (Negative); LEUK ESTERASE, URINE NEGATIVE (negative); NITRITE, URINE NEGATIVE (negative)
[2023-01-26 12:52] LABS: INFLUENZA B NAA NEGATIVE (NEGATIVE); RESPIRATORY SYNCYTIAL VIR NAA NEGATIVE (NEGATIVE)
[2023-01-26 13:03] LABS: EPITHELIAL CELLS, URINE SQUAMOUS 1+ /lpf (0-1+)
[2023-01-26 13:04] LABS: BACTERIA, URINE RARE /hpf (negative); CASTS, URINE NONE SEEN \\lpf; COLLECTION TYPE, URINE CLEAN CATCH; CRYSTALS, URINE NONE SEEN (0-1+); REFLEX CULTURE, URINE No (No)
[2023-01-26 13:09] LABS: BANDS, MANUAL DIFF 20; BASOPHILS, MANUAL DIFF 1; EOSINOPHILS, MANUAL DIFF 0; LYMPHOCYTES, MANUAL DIFF 5; MONOCYTES, MANUAL DIFF 0; NEUTROPHILS, MANUAL DIFF 74
--- NOTE | 2023-01-26 15:30 | NUR ---
16fr NG placed in right nare. Patient pre-oxiginated, sp02 98%. Immediate return of brown colored gastric content noted with ng placement. Patient tolerated placement well. Admin compazine 10mg IV and dilaudid 2MG IV for reports of abdominal pain and nausea. Surgical consent obtained and placed in chart.
--- NOTE | 2023-01-26 16:20 | NUR ---
STAFF IS GETTING THE PATIENT READY TO GO TO THE OR FOR A LAP-APPY. ANIMAL ANATOMY TEACHER WILL DO THE DISCHARGE ASSESSMENT POST SURGERY.
--- NOTE | 2023-01-26 17:54 | NUR ---
Report provided to VALENTINO Perea in CCU dept.
--- NOTE | 2023-01-26 19:29 | NUR ---
01/26/[id number] Brit Bueno 1917- PT ARRIVES TO [facility] ROOM #129 AROUSABLE TO VERBAL STIMULI. PT IS ABLE TO REPORT SHE IS IN THE HOSPITAL. PT DENIES ANY PAIN OR NAUSEA. RESP EVEN AND UNLABORED. OXYGEN SAT HIGH 90'S ON 3L VIA NC. 1923- NG TUBE CONNECTED TO LOW INTERMITTENT SUCTION. 1927- LIGHTS TURNED DOWN AND PT OPENS HER EYES. PT REMAINS REPORTING NO PAIN OR NAUSEA.
--- NOTE | 2023-01-26 19:45 | NUR ---
REPORT RECEIVED FROM CASING BUILDER. PATIENT IS DROWSY BUT WAKES TO VOICE. DENIES PAIN AT THIS TIME. NO NAUSEA. NG TUBE IN PLACE; CONNECTED TO LIWS WITH MINIMAL OUTPUT. MIDLINE INCISION IS CDI; SMALL AMOUNT OF SHADOWING NOTED. BRIGHT IN PLACE. SCDs IN USE. IV FLUIDS STARTED PER ORDER. FAMILY AT BEDSIDE.
--- NOTE | 2023-01-26 20:15 | NUR ---
PATIENT REPORTED PAIN IN HER UPPER ABD AND APPEARS UNCOMFORTABLE. PRN MORPHINE PROVIDED. NO NAUSEA.
--- NOTE | 2023-01-26 21:15 | NUR ---
PATIENT CONTINUES TO REPORT PAIN. WHEN ASKED TO RATE 0-10; PATIENT STATES "IT JUST HURTS". PRN TORADOL AND MORPHINE PROVIDED. ICE PACKS APPLIED TO AREA. REPOSITIONED FOR COMFORT AND PROVIDED ORAL SWAB.
--- NOTE | 2023-01-26 22:06 | NUR ---
PATIENT IS ALERT, TALKING WITH FAMILY. REPORTS FEELING TIRED BUT BETTER PAIN CONTROL. NG TUBE FLUSHED AND CONNECTED TO LIWS; SMALL AMOUNT OF BROWN BILE COLORED OUTPUT NOTED. PATIENT DENIES NAUSEA. IV ABX STARTED PER ORDER, IV SITE WNL X1. BRIGHT EMPTIED FOR 100 MLS. PATIENT HAS CALL LIGHT IN REACH. DENIES ANY FURTHER NEEDS.
[2023-01-27] VITALS (10 sets, daily range): BP systolic 107–151; BP diastolic 48–60
--- NOTE | 2023-01-27 00:57 | NUR ---
PATIENT APPEARED TO BE RESTING COMFORTABLY WITH EYES CLOSED. VS STABLE. PATIENT WOKE WHILE RN IN ROOM. DENIES PAIN.
--- NOTE | 2023-01-27 04:00 | NUR ---
PATIENT REPORTS BEING HOT. TEMP IN ROOM ADJUSTED AND BLANKETS REMOVED. PATIENT'S ORAL TEMP WNL. COOL WASH CLOTH PROVIDED. PATIENT DENIED PAIN OR NAUSEA. NG TUBE IN PLACE; CONNECTED TO LIWS. ABD IS TENDER; BOWEL SOUNDS HYPOACTIVE. BRIGHT IN PLACE. PATIENT DENIES ANY OTHER NEEDS. CALL LIGHT IN REACH.
[2023-01-27 05:33] LABS: BASOPHILS 0.3 % (0-2); EOSINOPHILS 0.1 % (0-6); HEMATOCRIT 35.6 % (35.0-50.0); HEMOGLOBIN 11.9 g/dL (12.0-18.0); LYMPHOCYTES 5.7 % (24-44); MCH 33.9 (27-36); MCHC 33.3 g/dl (30-36); MCV 101.8 fl (81-99); MONOCYTES 8.6 % (0-12); NEUTROPHILS 85.3 % (39-80); PLATELET COUNT 253 K/uL (140-440); RDW 13.5 (10.5-15.0)
[2023-01-27 05:42] LABS: ANION GAP 12.8 (7-21); BUN/CREATININE RATIO 25.18 (6.0-28.6); CALCIUM 8.9 mg/dL (8.5-10.1); CREATININE, SERUM 1.35 mg/dL (0.55-1.02); POTASSIUM 4.8 mmol/L (3.5-5.1)
--- NOTE | 2023-01-27 06:00 | NUR ---
BRIGHT EMPTIED. IV ABX PER ORDER; IV SITE WNL X1. PATIENT DENIED ANY CONCERNS. CALL LIGHT IN REACH.
--- NOTE | 2023-01-27 06:18 | EKG ---
[facility] [address] [place] [address] Signed Normal sinus rhythm with sinus arrhythmia Right bundle branch block Abnormal ECG When compared with ECG of 21-MAY-2016 22:07, premature atrial complexes are no longer present T wave inversion no longer evident in Inferior leads Confirmed by POONAM DIAS MD ([id number]) on 01/27/2023 6:18:13 AM Electronically Signed By: POONAM DIAS 01/27/23 0618 PATIENT NAME: ZAKI ARZATE Electrocardiogram DATE OF : 39 PHYSICIAN: POONAM DIAS REPORT #: [id number] REPORT IS CONFIDENTIAL AND NOT TO BE RELEASED WITHOUT AUTHORIZATION
--- NOTE | 2023-01-27 07:55 | NUR ---
REPORT RECEIVED. PT RESTING IN BED WITH HOB 30 DEGREES. PT WAKES EASILY, AAO. RATES PAIN /10. NG TUBE TO LIS AND FUNCTIONING APPROPRIATLY. VS STABLE ON MONITOR. CALL LIGHT IN REACH, SMALL AMOUNT OF ICE CHIPS PROVIDED FOR THROAT CONGESTION.
--- NOTE | 2023-01-27 08:45 | NUR ---
ASSESSMENT COMPLETE - PT AAO, MIDLINE INCISION DRESSING C/D/I, ABDOMEN SOFT AND WITHOUT BRUISING. NGT DRAINING GREEN BILE. PT DENIES NAUSEA. PAIN MEDICATION ADMINISTERED FOR 3/10 PAIN, ICE PACKS APPLIED. IS USE DEMONSTRATED - BIBASILAR CRACKLES NOTED. BRIGHT REMAINS IN PLACE, DRAINING QUANITY SUFFICIENT CONCENTRATED URINE.
--- NOTE | 2023-01-27 11:26 | NUR ---
RN IN ROOM ROUNDING WITH MD - ORDERS RECEIVED. PT STATES UNDERSTANDING AND AGREEANCE TO CURRENT PLAN OF CARE TO ADVANCE DIET AND AMBULATE TO BSC.
--- NOTE | 2023-01-27 11:56 | NUR ---
NGT DC'D PER MD ORDERS - PT TOLERATED WITHOUT DIFFICULTY. ICE WATER PROVIDED. PT DEEP BREATHING AND USING IS. PAIN IMPROVED TO 1/10.
[2023-01-27] MEDS ORDERED: FLUTICASONE-SA1 EAC4 INH (12:55)
--- NOTE | 2023-01-27 13:41 | NUR ---
PT RESTING IN BED - NO NAUSEA AFTER CLEAR LIQ TRAY. DENIES NEEDS AT THIS TIME. CALL LIGHT IN REACH.
[2023-01-27] MEDS ORDERED: MELATONIN3 MG PO (14:39)
--- NOTE | 2023-01-27 14:40 | NUR ---
MED REC COMPLETE
--- NOTE | 2023-01-27 17:45 | NUR ---
PT ASSISTED UP TO BSC TO VOID, UNABLE AT THIS TIME. PT TRANSFERED STANDBY ASSIST STEADY ON FEET. SAT AT EDGE OF BED TO BRUSH TEETH AND HAIR. PT TOLERATED MOVEMENT WITH MODERATE DISCOMFORT, DENIES NAUSEA.
--- NOTE | 2023-01-27 20:00 | NUR ---
PATIENT RESTING IN BED. DENIES CONCERNS AT THIS TIME. DISCUSSED GETTING UP TO ATTEMPT TO VOID; PATIENT IS DTV POST BRIGHT DC BUT DOES NOT FEEL THE NEED AT THIS TIME. WILL CONTINUE TO MONITOR. PAIN WELL CONTROLED. NO NAUSEA. CALL LIGHT AND BELONGINGS IN REACH.
--- NOTE | 2023-01-27 22:27 | NUR ---
PATIENT RESTING IN BED. HR 70-80'S; A.FIB. DILT TITRATED TO 5 MG/HR.
--- NOTE | 2023-01-28 01:02 | NUR ---
PATIENT UP TO THE BATHROOM. PATIENT FEELS NEED TO VOID; VOIDS ABOUT 10 MLS OF URINE. BLADDER SCAN SHOWS 146 MLS. PATIENT IS UNCOMFORTABLE BUT DENIES PAIN MEDS. EDUCATION PROVIDED AND PATIENT AGREES TO A "SMALL DOSE" OF PRN PAIN MEDS. SEE EMAR. PATIENT RESTING IN BED. SCDs IN PLACE. IV FLUIDS PER ORDER, SITE WNL. CALL LIGHT IN REACH.
--- NOTE | 2023-01-28 06:00 | NUR ---
PATIENT UP TO THE BATHROOM. MORE STEADY ON HER FEEL. TOLERATED ACTIVITY WELL. VOIDED 100 MLS CONCENTRATED URINE. RETURNED TO BED. DENIED PAIN. NO NAUSEA. IV FLUIDS PER ORDER; SITE WNL.
[2023-01-28 06:14] VITALS: BP 116/60
--- NOTE | 2023-01-28 08:07 | NUR ---
RN IN ROOM TO ASSIST PT TO BATHROOM. PT ANXIOUS THIS AM REGARDING HEALING PROCESS AND FEELING WEAK, DIFFICULTY VOIDING. STEADY ON FEET USING FWW, STANDBY ASSIST. IS ABLE TO VOID URINE HOWEVER VOLUME INSUFFICIENT. PT AMBULATES IN HALLWAY. CONTINUED EDUCATION AND REASSURMENT OF SURGICAL RECOVERY PROVIDED. PT NOW UP IN CHAIR RESTING. VS STABLE, AFEBRILE. DENIES NAUSEA, RATES PAIN 2/10.
[2023-01-28 08:18] VITALS: BP 128/62
--- NOTE | 2023-01-28 09:30 | NUR ---
REMAINS IN CHAIR. HAS BEEN RESTING.
--- NOTE | 2023-01-28 10:50 | NUR ---
WORKING WITH PHYSICAL THERAPY.
--- NOTE | 2023-01-28 10:55 | NUR ---
Pt assisted to bathroom to void. Urine remains concentrated. Pt tearful when back to bed about condition and her perception that she is not healing. Pt refuses pain medication at this time. Ice pack applied to site.
--- NOTE | 2023-01-28 12:22 | NUR ---
RN ROUNDING IN ROOM WITH MD. PT STATES SHE FEELS "DOWN IN THE DUMPS". PLAN TO AMBULATE AND CONTINUE ON CLEAR LIQS AGREED UPON WITH PT. MD MADE AWARE OF MINIMAL URINE OUTPUT. NO NEW ORDERS RECEIVED.
--- NOTE | 2023-01-28 12:28 | NUR ---
SITTING UP IN CHAIR TO EAT LUNCH.
--- NOTE | 2023-01-28 13:50 | NUR ---
pt ambulating 2 laps in unit with improved strength using fww.
[2023-01-28 14:13] VITALS: BP 150/72
--- NOTE | 2023-01-28 14:15 | NUR ---
Patient transferred to MS room 114. Pt on 2L O2 NC. VSS. Pt oriented to room/unit/call light system. All belongings transferred to new room. Pt denies needs at this time. Assessment complete.
--- NOTE | 2023-01-28 15:50 | NUR ---
Scheduled medications administered. Pt denies pain at this time. 2L O2 in place. No needs reported. Call light in reach.
[2023-01-28 17:55] VITALS: BP 156/77
--- NOTE | 2023-01-28 18:05 | NUR ---
Patient's VSS. Pt denies needing to use bathroom at this time, made plans to round shortly to attempt.
--- NOTE | 2023-01-28 19:00 | NUR ---
BEDSIDE REPORT RECEIVED FROM OFFGOING RN, KENDAL. PT ASSISTED TO ADJUST HER BLANKETS. FURTHER NEEDS DENIED.
[2023-01-28 20:47] VITALS: BP 157/75
--- NOTE | 2023-01-28 21:07 | NUR ---
PT ASSESSMENT COMPLETE. PT RESTING IN BED WATCHING TV. DENIES PAIN, NAUSEA, OR SOB. LUNG SOUNDS WITH CRACKLES PRESENT TO BILATERAL BASES, DO NOT CLEAR WITH COUGH. O2 AT 3 LPM VIA NC. ABD MILDLY DISTENDED, BT'S ACTIVE, ABD FIRM TO PALPATION. DRESSING TO MILINE INCISION WITH SMALL AMOUNT OF BROWN DRAINAGE AT THE INFERIOR ASPECT. PT DENIES FLATUS. PT UP TO BATHROOM AND BACK TO BED WITH FWW. TOLERATED WELL. PT WITH SMALL AMOUNT OF URINE OUTPUT REPORTED BY DAY SHIFT. IV FLUSHED WITH 10 ML NS, WNL. IVF INFUSING ORDERED. SCDS IN PLACE. ICE WATER REFILLED PER PT REQUEST. POC FOR THIS SHIFT DISCUSSED. PT DENIES QUESTIONS, CONCERNS, OR NEEDS AT THIS TIME. CALL LIGHT IN REACH.
--- NOTE | 2023-01-28 22:45 | NUR ---
PT ROUNDING. PT RESTING IN BED WITH EYES CLOSED. RESPIRATIONS EVEN AND UNLABORED. PT DOES NOT WAKE WHILE BRUSH POLISHER AT DOORWAY. CALL LIGHT IN REACH.
--- NOTE | 2023-01-28 23:26 | NUR ---
PT UTILIZES CALL LIGHT, REQUESTS TO GO TO THE BATHROOM. PT UP TO BATHROOM AND BACK TO BED WITH 1 PA AND FWW. PT TOLERATED WELL. STATES THAT PAIN IS 0/10 WHEN NOT MOVING. DENIES NEED FOR PRN PAIN MEDICATION. PT DENIES FURTHER NEEDS. CALL LIGHT IN REACH.
--- NOTE | 2023-01-29 00:58 | NUR ---
PT ROUNDING. PT RESTING IN BED WITH EYES CLOSED. RESPIRATIONS EVEN AND UNLABORED. PT APPEARS TO BE SLEEPING. CALL LIGHT IN REACH.
--- NOTE | 2023-01-29 01:27 | NUR ---
PATIENT CALLED TO USE THE BATHROOM. SBA. PATIENT VOIDED 150ML DARK YELLOW URINE. PATIENT IS BACK IN BED. PATIENT REQUESTED FOR PAIN MEDS. DIESEL MAINTENANCE ELECTRICIAN NOTIFIED DUE TO PRIMARY RN WAS ON BREAK.
--- NOTE | 2023-01-29 01:38 | NUR ---
PATIENT REPORTS 4/10 ABD PAIN, PRN PAIN MEDICATION GIVEN PER ORDER. ICE PACK APPLIED TO ABD. PATIENT DENIES ANY FURTHER NEEDS. CALL LIGHT IN REACH.
--- NOTE | 2023-01-29 02:56 | NUR ---
PT ASSESSMENT COMPLETE. PT UTLIZES CALL LIGHT, REQUESTS TO GO TO THE BATHROOM. AFTER RETURNING TO BED FROM THE BATHROOM PT REPORTS INCREASED PAIN TO ABD. 4/10. PT ALSO DESCRIBES FEELING OF FULLNESS AND HEARTBURN, THEN SUDDENLY DESCRIBES FEELING NAUSEATED. PRN ANTIEMETIC AND PAIN MEDICATION ADMINISTERED PER ORDER. PT HAD 50ML GREEN WATERY EMESIS, THEN REPORTS RELIEF OF NAUSEA. BT'S REMAIN ACTIVE. ABD REMAINS DISTENDED, NO CHANGE IN DISTENSION FROM PREVIOUS ASSESSMENT. DRESSING TO MIDLINE INCISION WITH SMALL AMOUNT OF DRAINAGE PRESENT, UNCHANGED FROM PREVIOUS. PT DECLINES ICE PACK TO ABD AT THIS TIME. REPORTS FEELING COLD. WARM BLANKET PROVIDED. LUNG SOUNDS CONTINUE TO HAVE CRACKLES IN BILATERAL LOWER LOBES. 02 @ 3LPM VIA NC. IV FLUSHED WITH 10 ML NS, WNL. IVF INFUSING ORDERED. PT DENIES FURTHER NEEDS AT THIS TIME. STATES THAT PAIN IS SOMEWHAT LESSENED AT END OF ASSESSMENT, RATES 3/10. CALL LIGHT IN PT REACH.
--- NOTE | 2023-01-29 03:50 | NUR ---
PT ROUNDING. PT RESTING IN BED WITH EYES CLOSED. RESPIRATIONS EVEN AND UNLABORED. PT APPEARS TO BE SLEEPING. DOES NOT WAKE WHILE PROFESSOR OF PSYCHOLOGY AT BEDSIDE. CALL LIGHT IN REACH.
[2023-01-29 05:21] LABS: BASOPHILS 0.5 % (0-2); EOSINOPHILS 1.2 % (0-6); HEMATOCRIT 31.2 % (35.0-50.0); HEMOGLOBIN 10.5 g/dL (12.0-18.0); LYMPHOCYTES 14.6 % (24-44); MCH 33.9 (27-36); MCHC 33.6 g/dl (30-36); MCV 100.9 fl (81-99); MONOCYTES 7.5 % (0-12); NEUTROPHILS 76.2 % (39-80); PLATELET COUNT 274 K/uL (140-440); RDW 13.6 (10.5-15.0)
[2023-01-29 05:40] LABS: ALBUMIN 2.1 g/dL (3.4-5.0); ALBUMIN/GLOBULIN RATIO 0.57 (1.1-2.4); ANION GAP 9.3 (7-21); BILIRUBIN, TOTAL 0.7 ng/dL (0.2-1.0); BUN/CREATININE RATIO 31.08 (6.0-28.6); CALCIUM 8.5 mg/dL (8.5-10.1); CREATININE, SERUM 0.74 mg/dL (0.55-1.02); POTASSIUM 4.3 mmol/L (3.5-5.1); PROTEIN, TOTAL 5.8 g/dL (6.4-8.2)
[2023-01-29 05:49] VITALS: BP 136/68
--- NOTE | 2023-01-29 07:31 | NUR ---
Got report from bacon slicer nurse. Patient laying in bed relaxing, denies any cares at this time but states she is getting more tender in her abdomen. Patient has warm blanket on it currently. Denies an ice pack.
--- NOTE | 2023-01-29 08:53 | NUR ---
Into do morning assessment. Patient currently on 3L of oxygen. She has SCDs on and running. Patient eating breakfast which is clear liquids for her. Pain is a 2/10 but denies anything at this time. Patient has call light within reach.
--- NOTE | 2023-01-29 09:25 | NUR ---
ALERT AND ORIENTED, SITTING UP IN BED. STATES SHE HAS BEEN VERY WEAK SINCE SURGERY. [place] WITH DAUGHTER, GRANDSON, GREAT GRAND-DAUGHTER (WHO WILL BE LEAVING IN A COUPLE WEEKS FOR COLLEGE), ALL IN THE SAME BUILDING. STATES BUILDING IS SPLIT INTO SLEEPING AREAS. DOES STATE THAT SHE HAS A FEW STAIRS THAT SHE IS UNSURE SHE WILL BE ABLE TO NAVIGATE AT DISCHARGE. STATES SHE WOULD BE UNABLE TO DRIVE TO [facility] FOR PT AND WOULD NEED PT WITH HOME HEALTH IF NEEDED. DISCUSSED NEED FOR PT WITH DR. BERMUDEZ, ORDERS PT EVAL AND TREAT. STATES SHE DOES USE OXYGEN AT HOME, THROUGH [facility], AT NIGHT AND PRN DURING THE DAY. SHE DOES HAVE A WALKER, FAMILY MEMBER IS CURRENTLY USING IT, BUT SHE WILL BE ABLE TO USE IT AT HOME IF SHE NEEDS IT. MULTIPLE FAMILY MEMBERS ARE ABLE TO HELP WITH CARES AT HOME IF NEEDED. STATES SHE STILL WORKS FROM HOME IN HER [place]. KEITH ARZATE IS HER EMERGENCY CONTACT, PHONE NUMBER [phone]
--- NOTE | 2023-01-29 09:29 | NUR ---
PT CALLED FOR ASSISTANCE TO THE RESTROOM. PT WAS ABLE TO AMBULATE W/FWW, STBY W/NO HANDS ON. PT ABLE TO VOID, PERFORM OWN SELWYN CARE. UP TO SINK TO PERFORM OWN ORAL/SKIN CARE. AMBULATE BACK TO BED. CALL LIGHT IN REACH, NO OTHER NEEDS AT THIS TIME.
[2023-01-29 09:30] VITALS: BP 161/65
--- NOTE | 2023-01-29 10:37 | NUR ---
PATIENT CURRENTLY ASLEEP IN CHAIR.PATIENT HAS OXYGEN ON AND REGULAR RESPIRATIONS NOTED.
--- NOTE | 2023-01-29 11:55 | NUR ---
Patient in bed sleeping, regular respirations noted. Patient has oxgyen on.
--- NOTE | 2023-01-29 12:46 | NUR ---
PATIENT JUST FINISHED PT AND IS SITTING IN THE CHAIR FOR LUNCH.
--- NOTE | 2023-01-29 13:06 | NUR ---
PT IN CHAIR. APPEARED TO SLEEPING BUT OPENED EYES I ENTERED ROOM. INDICATED WAS NOT COMFORTABLE IN CHAIR BUT WOULD CALL FOR ASSISTANCE BACK TO BED AFTER MY VISIT. CONSENTED TO PRAYER. PRAYED FOR HEALING AND ONGOING BLESSING. LEFT GUIDEPOST AND CARD.
--- NOTE | 2023-01-29 13:54 | NUR ---
Spoke with Morena PT. Patient is recommended for PT at [place] to home. Patient does not want to do any type of rehad and is unable to drive to [place] for therapy from her home in [place].
[2023-01-29 13:59] VITALS: BP 165/87
--- NOTE | 2023-01-29 14:21 | NUR ---
PATIENT CURRENTLY SLEEPING IN BED. NC ON AT 3L OXYGEN. REGULAR RESPIRATIONS NOTED.
--- NOTE | 2023-01-29 15:21 | NUR ---
ADVISED PATIENT I COULD TAKE HER OUTSIDE IN A WHEELCHAIR FOR A LITTLE WALK BUT SHE WAS NOT FEELING UP TO IT AT THIS TIME. PATIENT C/O HEARTBURN AND PEPCID ONLY ORDERED EVERY OTHER DAY. SPOKE TO AND HE WILL CORRECT ORDER AND PLACE PRN MEDICATION FOR HEARTBURN.
--- NOTE | 2023-01-29 15:46 | NUR ---
PATIENT GIVEN MEDICATION TO HELP WITH HEARTBURN SEE EMAR. INTO TALK TO PATIENT. PATIENT JUST GOT BACK TO BED FROM USING THE RESTROOM. SCDS ON. PATIENT HAS OXYGEN ON ALSO.
--- NOTE | 2023-01-29 16:29 | NUR ---
Patient up and walked one full lap around med surg floor with walker and oxygen on. Patient tolerated very well. Patient back in room resting in bed. SCDs back on and IV fluids running again.
--- NOTE | 2023-01-29 18:07 | NUR ---
INTO CHECK ON PATIENT. PATIENT WAS ABOUT TO VOMIT AT THE TIME. COLD WASH CLOTH PLACED ON FORHEAD. EMESIS BAG GIVEN. PATIENT STATES ITS FROM THE PAIN THAT STARTED TO INCREASE. PATIENT WAS GIVEN TORADOL BUT AFTER GIVING THIS AND WATCHING IV IT IS LEAKING. WILL TRY TO PLACE NEW IV NOW.
--- NOTE | 2023-01-29 18:37 | NUR ---
NEW IV PLACED IN PATIENTS RIGHT UPPER ARM. WORKING WELL. NO COMPLICATIONS. PATIENT GIVEN ORAL PAIN MEDICATION SEE EMAR. SHE DOES NOT FEEL LIKE SHE GOT ANY OF THE TORADOL WITH THE IV LEAKING.
[2023-01-29 18:39] VITALS: BP 154/72
--- NOTE | 2023-01-29 18:54 | NUR ---
PATIENT STARTED TO VOMIT ONCE THIS NURSE WALKED OUT. NAUSEA MEDICATIONS TO BE GIVEN. BOWEL SOUNDS ARE ACTIVE. NO CHANGE IN DRESSING. PATIENT HAS NOT PASSED ANY GAS TODAY.
--- NOTE | 2023-01-29 19:00 | NUR ---
BEDSIDE REPORT RECEIVED FROM OFFGOING RNJHOANA. PT RESTING IN BED WITH EYES CLOSED, RESPIRATIONS EVEN AND UNLABORED. PT APPEARS TO BE SLEEPING. CALL LIGHT IN REACH.
[2023-01-29 20:26] VITALS: BP 171/67
--- NOTE | 2023-01-29 20:40 | NUR ---
CALL LIGHT ANSWERED. VS COMPLETE. pt DENIES PAIN AT REST, GRIMACES WHEN SITTING UP. pt REQUESTING TO WALK, [place] HALF LAP ON MS FLOOR WITH FWW, 3L OXYGEN BY HI IN PLACE. GAIT STEADY. pt BACK IN ROOM FOR VOID. PRIMARY RN WILLIE NOW IN ROOM.
--- NOTE | 2023-01-29 20:50 | NUR ---
PT ASSESSMENT COMPLETE. PT RETURNING TO ROOM FROM WALK WITH RESEARCH ENVIRONMENTAL ENGINEER AND SENIOR STATISTICAL PROGRAMMER MERCHANDISING LEAD ENTERS THE ROOM. PT REPORTS INCREASED PAIN, DECLINES OFFER FOR PRN PAIN MEDICATION. STATES THAT PAIN WILL LESSEN WHEN SHE GETS BACK TO BED. PT DENIES NAUSEA OR SOB. REPORTS SLIGHT HEARTBURN. LUNG SOUNDS WITH CRACKLES TO BILATERAL LOWER LOBES, DO NOT CLEAR WITH COUGH. O2 @ 3LPM, CHRONIC. BT'S ACTIVE. ABD DISTENDED. TENDER TO PALPATION. DRESSING WITH SMALL AMOUNT OF SHADOWING PRESENT TO INFERIOR ASPECT, UNCHANGED FROM LAST EVENING. PT TO BATHROOM, STATES THAT SHE FEELS URGE TO HAVE A BM BUT WAS UNABLE. PT ASSISTED BACK TO BED. IV FLUSHED WITH 10 ML NS, WNL, IVF INFUSING ORDERED. PT WITH VISITORS AT BEDSIDE. DENIES FURTHER NEEDS, QUESTIONS, OR CONCERNS AT THIS TIME. CALL LIGHT IN REACH.
--- NOTE | 2023-01-29 22:31 | NUR ---
PT UTLIZES CALL LIGHT, STATES THAT SHE IS HAVING EMESIS. DRUM PLATER TO ROOM PT. WITH 200 ML BROWN COLORED EMESIS IN BAG. PRN ANTIEMETIC ADMINISTERED, SEE EMAR PT STATES THAT NAUSEA IS MOSTLY RESOLVED AFTER EMESIS. STATES THAT PAIN IS WELL CONTROLLED WHILE SHE IS NOT MOVING. DENIES NEED FOR PRN PAIN MEDICATION. PT RESTING IN BED WITH EYES CLOSED. DENIES FURTHER NEEDS. CALL LIGHT IN REACH.
--- NOTE | 2023-01-29 23:34 | NUR ---
PT ROUNDING. PT RESTING IN BED WITH EYES CLOSED. RESPIRATIONS EVEN AND UNLABORED. PT APPEARS TO BE SLEEPING. CALL LIGHTIN REACH.
--- NOTE | 2023-01-30 00:57 | NUR ---
PT UTILIZES CALL LIGHT, REPORTS EMESIS. NATURAL RESOURCES ENGINEER TO ROOM, DELVIN EMESIS, 50 ML, PRESENT IN BAG. PT DENIES NAUSEA OR FEELING LIKE SHE WILL HAVE EMESIS. PT STATES URGE TO THROW UP COMES ON VERY SUDDENLY AND THEN SHE FEELS FINE AFTERWARDS. DENIES PRN ANTIEMETIC. PT DENIES INCREASED PAIN, DENIES NEED FOR PRN PAIN MEDICATION. PT DENIES NEEDS AT THIS TIME. CALL LIGHT IN REACH.
--- NOTE | 2023-01-30 02:32 | NUR ---
PT ROUNDING. PT RESTING IN BED WITH EYES CLOSED. RESPIRATIONS EVEN AND UNLABORED. PT DOES NOT WAKE WHILE FLOOR COVERINGS SALESPERSON AT DOORWAY. CALL LIGHT IN REACH.
--- NOTE | 2023-01-30 03:00 | NUR ---
CALL LIGHT ANSWERED. SBA TO BATHROOM. PATIENT HAD A MEDIUM SOFT/FORMED BM. WIPE ASSISTED. PATIENT WASHED HANDS. PATIENT IS BACK IN BED. PRIMARY RN WAS WITH PATIENT.
--- NOTE | 2023-01-30 03:15 | NUR ---
PT ASSESSMENT COMPLETE. PT UP TO BATHROOM WITH ANIMATION ARTIST ASSISTANCE. PT ABLE TO HAVE A MEDIUM SIZED BM, SOFT, FORMED. PT REPORTS INCREASED PAIN TO ABD. PRN ADMINISTERED. PT DENIES NAUSEA OR SOB. LUNG SOUNDS WITH CRACKLES TO BILATERAL LOWER LOBES. UNCHANGED FROM PREVIOUS. O2 IN PLACE @ 3LPM VIA NC. BT'S ACTIVE. ABD MILDLY DISTENDED. TENDER TO PALPATION. DRESSING TO MIDLINE INCISION D/I, DRAINAGE UNCHANGED. IV FLUSHED WITH 10 ML NS. WNL. IVF INFUSING ORDERED. PT DENIES FURTHER NEEDS AT THIS TIME. CALL AUBREY MURGUIA.
--- NOTE | 2023-01-30 04:02 | NUR ---
PT RESTING IN BED WITH EYES CLOSED. RESPIRATIONS EVEN AND UNLABORED. PT DOES NOT WAKE WHILE BUSINESS CENTER MANAGER AT BEDSIDE. CALL LIGHT IN REACH.
--- NOTE | 2023-01-30 04:32 | NUR ---
PT UTILIZES CALL LIGHT, STATES SHE HAD AN EPISODE OF EMESIS. BINDER AND WRAPPER PACKER TO ROOM. PT HAD EMESIS EPISODE IN BED. BINDER AND WRAPPER PACKER CHANGED GOWN AND BED LINEN. PRN ANTIEMETIC ADMINISTERED. PT STATES THAT SHE IS NOT HAVING NAUSEA PERSAY, RATHER JUST UNEXPECTEDLY HAS EPISODES OF NAUSEA. PT STATES THAT PAIN IS WELL CONTROLLED AFTER ADMINISTRATION OF PRN PAIN MEDICATION. VS OBTAINED. WNL. ICE WATER REFILLED. PT DENIES FURTHER NEEDS AT THIS TIME. CALL LIGHT IN REACH.
[2023-01-30 04:34] VITALS: BP 156/68
--- NOTE | 2023-01-30 07:00 | NUR ---
BEDSIDE HANDOFF REPORT RECEIVED FROM COLLISION TECHNICIAN RN. PT SLEEPING, LEFT UNDISTURBED, RESPIRATIONS EVEN AND UNLABORED.
--- NOTE | 2023-01-30 07:15 | NUR ---
THIS CORE CUTTER HAS TAKEN OVER CARES FOR THIS PT FROM TOP CASE ASSEMBLER CORE CUTTER. PT IS RESTING IN BED WITH SCDS ON. PT HAS EMESIS BAG AT THE BEDSIDE. PT STATED SHE DOES NOT NEED TO GO TO THE BATHROOM AT THIS TIME. CALL LIGHT WITHIN REACH.
--- NOTE | 2023-01-30 08:03 | NUR ---
CALL LIGHT ANSWERED. JUSTICE PROFESSOR ASSISTED PT TO THE BATHROOM WITH SBA AND FWW. PT VOIDED AND HAD A LIQUID, MEDIUM SIZED BM. PT ASSISTED TO THE CHAIR WITH BLE ELEVATED. PT STARTED VOMITING SOON SHE SAT DOWN IN THE CHAIR. PT HAD 800 ML OF EMESIS. JUSTICE PROFESSOR ASSISTED PT WITH CHANGING [facility]OSPITAL GOWN AND ORAL CARES. NURSE NOTIFIED OF PT STATUS. NEW EMESIS BAG PROVIDED. CALL LIGHT WITHIN REACH.
--- NOTE | 2023-01-30 08:52 | NUR ---
PT WITH EMESIS, 800ML. PT ASSESSED, DENIES NAUSEA, COMPAZINE GIVEN. BOWEL TONES HYPOACTIVE, ABD FIRM BUT NON TENDER. CALL PLACED TO DR. BERMUDEZ, ORDER FOR NG TUBE AND THEN KUB. NG TUBE PLACED WITHOUT DIFFICULTY, INITIAL 1100ML OF DARK GREEN STOMACH CONTENTS OBTAINED, PLACED TO LIWS. XRAY OBTAINED. PT NOW RESTING QUIETLY IN BED, DENIES OTHER NEEDS AT THIS TIME.
--- NOTE | 2023-01-30 09:30 | NUR ---
NG TUBE SECUREMENT DEVICE REPOSTIONED. PT DENIES OTHER NEEDS AT THIS TIME.
[2023-01-30 09:47] VITALS: BP 137/92
[2023-01-30 13:31] VITALS: BP 138/68
--- NOTE | 2023-01-30 14:03 | NUR ---
PT APPEARED TO BE SLEEPING. DID NOT ROUSE AT MY ENTRY. DID NOT DISTURB. LEFT GP AND CARD. PRAYED FOR HEALING AND ONGOING BLESSING.
--- NOTE | 2023-01-30 16:56 | NUR ---
Spoke with pt. She states she is tired. Does not likeher NG tube. Friend at bedside. Pt denies needs.
[2023-01-30 17:41] VITALS: BP 149/58
--- NOTE | 2023-01-30 17:52 | NUR ---
PT HAD NG TUBE PLACED THIS AM AND REPEAT KUB. PT ON 3L NC, LUNG SOUNDS CLEAR. PT DENIES PAIN. BOWEL TONES ACTIVE THIS AFTERNOON, WITHOUT EMESIS AFTER NG TUBE PLACED. LR INFUSING AT 85ML/HR. WALKED IN [place] WITH PHYSICAL THERAPY.
--- NOTE | 2023-01-30 19:23 | NUR ---
REPORT RECEIVED FROM VALENTINO KAMARA. pt RESTING IN BED AWAKE, HOB ELEVATED. SBA TO RESTROOM WITH FWW FOR VOID, 250 ML CONCENTRATED VOID. BACK IN BED. pt DENIES PAIN, "IT HURTS A LITTLE WHEN I WALK". DENIES NEED FOR MEDICATION. COMPLAINS OF THROAT DISCOMFORT, ICE CHIPS PROVIDED FOR COMFORT. NGT TO LOW INT SUCTION. CALL LIGHT IN REACH. SCDS ON.
[2023-01-30 19:52] VITALS: BP 151/60
--- NOTE | 2023-01-30 20:20 | NUR ---
pt RESTING IN BED AWAKE. VSS. PRN TORADOL ADMINISTERED FOR THROAT PAIN AND SOME ABDOMINAL PAIN WITH MOVEMENT "I DON'T HAVE ANY JUST LAYING HERE". DENIES NEED FOR PRN CEPACOL LOS[place]. ASSESSMENT COMPLETE. TINKLING HEARD IN BOWEL TONES, HYPOACTIVE WITH NGT CLAMPED FOR AUSCULTATION. ABDOMEN SOFT, NON-TENDER WITH PALPATION. IVF INFUSING WNL. pt UP WITH VALENTINO JETER AT THIS TIME TO AMBULATE IN HALLWAY.
--- NOTE | 2023-01-30 20:29 | NUR ---
PT AMBULATED 2 LAPS WITH FWW AROUND [facility]. TOLERATED WELL. PT BACK IN BED ON 3L NC, NG @ LIS, SCDs ON, IV FLUIDS INFUSING PER ORDER. CALL LIGHT IN REACH.
--- NOTE | 2023-01-30 21:13 | NUR ---
CHECKED ON pt. RESTING IN BED WITH EYES CLOSED. NGT TO LOW INT SUCTION. BROWN DRAINAGE IN TUBING. HOB ELEVATED. BREATHING UNLABORED. IVF INFUSING WNL. CALL LIGHT IN REACH.
--- NOTE | 2023-01-30 23:30 | NUR ---
CHECKED ON pt. RESTING IN BED WITH EYES CLOSED. HOB ELEVATED. NO DISTRESS NOTED. BREATHING UNLABORED. NGT TO LOW INT SUCTION. CALL LIGHT WITHIN REACH.
--- NOTE | 2023-01-31 01:09 | NUR ---
CALL LIGHT ANSWERED. SBA TO RESTROOM WITH FWW FOR 200 ML CONCENTRATED VOID. BACK TO BED. ICE CHIPS PROVIDED FOR COMFORT. pt DENIES ANY PAIN. BOWEL TONES ACTIVE, ABD SOFT, NON-TENDER WITH PALPATION. DRESSING INTACT, UNCHANGED FROM START OF SHIFT. LIGHTS OFF IN ROOM. SCDS ON. CALL LIGHT IN REACH.
--- NOTE | 2023-01-31 03:20 | NUR ---
PT RESTING IN BED WITH EYES CLOSED, RR 16, HOB ELEVATED. NGT TO LOW INT SUCTION. SCDS ON.
[2023-01-31 06:28] VITALS: BP 168/71
--- NOTE | 2023-01-31 06:52 | NUR ---
IN ROOM FOR VS. VSS. pt DENIES PAIN AT REST, DRESSING UNCHANGED FROM START OF SHIFT. NGT FLUSHED WITH 50 MLS WATER AND 50 MLS AIR. FLUID RETURNED. GREEN DRAINAGE NOTED. 180 MLS THIS SHIFT. SBA WITH FWW TO RESTROOM FOR VOID AND BACK TO BED. pt COMPLAINS OF THROAT PAIN, PRN TORADOL ADMINISTERED. CALL LIGHT IN REACH. ICE CHIPS FOR COMFORT.
--- NOTE | 2023-01-31 07:06 | NUR ---
Report from Lashawn Alcantar RN. Patient sitting up in bed, watching TV. NG to LIS. Patient denies pain and other needs at this time. Call light in reach, bed rails up X2.
--- NOTE | 2023-01-31 07:50 | NUR ---
PT RESTING IN BED. NO NEEDS, CALL LIGHT WITHIN REACH
--- NOTE | 2023-01-31 09:00 | NUR ---
STATES SHE WAS ABLE TO PASS FLATUS WHILE AMBULATING TO BR THIS AM. INFORMED STAFF WILL BE IN TO ASSIST HER TO AMBULATE IN HALLS THIS AM. VERBALIZES UNDERSTANDING. DENIES OTHER NEEDS AT THIS TIME. CALL LIGHT IN REACH.
[2023-01-31 09:20] VITALS: BP 156/72
--- NOTE | 2023-01-31 09:47 | NUR ---
AMBULATED IN HALLWAY. STATES SHE DID PASS ONE SMALL AMOUNT OF FLATUS WHILE WALKING. NO PAIN AT THIS TIME. STATES SHE IS HUNGRY. CALL LIGHT IN REACH, BED RAILS UP. DENIES OTHER NEEDS.
--- NOTE | 2023-01-31 10:30 | OR ---
[facility] [address] [place], [place] [address] Signed DATE OF OPERATION: 01/26/2023 SURGEON: Abby Bermudez MD PREOPERATIVE DIAGNOSES: 1. 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 2. Multiple gallstones. 3. Incidental right lower lobe lung neoplasm. POSTOPERATIVE DIAGNOSES: 1. 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 2. Multiple gallstones. 3. Incidental right lower lobe lung neoplasm. PROCEDURES: 1. Exploration of abdomen. 2. Resection of terminal ileum and cecum with end-to-side ileocolostomy. 3. Open cholecystectomy. ANESTHESIA: General endotracheal, Maynor Ferrara, CISTERN ROOM WORKING SUPERVISOR and postoperative TAP blocks bilateral. INDICATIONS: This 87-year-old white woman is known to me from the distant past, had undergone right breast cancer treatment and evaluation for chronic ulcerative colitis. She is currently a patient of Dr. Vane Roberts. She presented to the emergency room today and evaluated by Dr. Montgomery, having had several days of an increased abdominal pain, distention and nausea and vomiting. Evaluation included a CT scan, which showed dilated distal small bowel and a large fecaloma in the region of the ileum. Incidentally noted was right lower lobe lung mass, most likely related to malignancy. The patient is known to have a distant history of ulcerative colitis, for which I have performed colonoscopy on her multiple times in the past. She also underwent right breast cancer treatment by me in the past including lumpectomy, axillary dissection, and radiation therapy. It is unclear the reason she would have such a large fecaloma causing obstruction of the terminal ileum, but the possibility of malignancy remains of course. Given her acute distention and her general frailty overall, I have recommended operation at this time to include remedy of the obstruction by whatever means including partial bowel resection as well as cholecystectomy for incidentally noted multiple gallstones. The risk of bleeding, infection, anastomotic failure, and other unforeseen complications related to Electronically Signed By: ABBY BERMUDEZ MD 01/31/23 1030 PATIENT NAME: ZAKI ARZATE OPERATIVE REPORT DATE OF : 39 REPORT #: [id number] PHYSICIAN: ABBY BERMUDEZ MD PCP: VANE ROBERTS MD REPORT IS CONFIDENTIAL AND NOT TO BE RELEASED WITHOUT AUTHORIZATION [facility] [address] [place], [place] [address] Signed operation were reviewed in detail with her and her daughter. She understands and wished to proceed. FINDINGS: A small midline incision was made just cephalad to the umbilicus. This allowed for good evaluation of the abdominal contents. There was no evidence of carcinomatosis. She did have multiple small lymph nodes of the mesentery and definitely an obstruction in the region of the ileocecal valve with large fecaloma there. There was no sign of erosion or perforation. Proximal bowel loops were quite dilated up to about the mid small bowel, more proximally less inflamed and less dilated. The fecaloma could be milked into the cecum largely, however, the ileocecal valve and tissue within the cecum itself appeared to be bulky and rubbery and suggestive though not diagnostic of neoplasm proper. On that basis, ileal resection was undertaken as well as cecal resection and end-to-side ileocolostomy performed. The specimen once opened showed a pocket like area of the cecum. No primary tumor of the ileum so far as could be told was noted, however. The bowel was decompressed from ligament of Treitz distalward through the anastomosis with no evidence of leakage and good decompression and viability of the bowel. As regard to the gallbladder, it was quite markedly distended, intensely deep, all of green and highly suggestive of inflammation also. Cholecystectomy was performed, which demonstrated multiple 1 cm dark gallstones. Cholangiogram was not performed. The liver itself showed no evidence of metastatic disease and was normal for age. DESCRIPTION OF PROCEDURE: The patient was brought to the operating room, given a general endotracheal anesthetic. A nasogastric tube was in place. Escalante catheter was placed. Preoperative antibiotic, cefoxitin had been given. The abdomen was prepared with a chlorhexidine solution and draped sterilely. A supraumbilical incision was made extending around the umbilicus inferiorly. She has a generally thin body habitus. The abdomen was entered without problem. Upon entry into the abdomen, the area of distinct severe inflammation of small bowel was noted, juxtaposed to non-inflamed small bowel. Handheld retractors were used throughout given her thin body habitus. The small bowel was delivered outside of the abdomen showing several areas of narrowing, none of which had actual scar or neoplasm. The more proximal bowel was completely normal. The ligament of Treitz demarcating the beginning of the jejunum was quite normal. A calcified aorta was noted. There was good pulsation within the mesentery of the small bowel throughout. The bowel loops that were most distal were quite markedly inflamed and definitely dilated. Ultimately delivered was the relatively mobile cecum. A fecaloma was noted in the terminal ileum. This was gently manipulated and found not to have a hard mass or anything of that sort. The fecal material was milked into the cecum reasonably well. Palpation of the cecum itself demonstrated a rubbery neoplastic like finding, which could not be easily distinguished Electronically Signed By: ABBY BERMUDEZ MD 01/31/23 1030 PATIENT NAME: CARITO,ZAKI ADAM OPERATIVE REPORT DATE OF : 39 REPORT #: [id number] PHYSICIAN: ABBY BERMUDEZ MD PCP: VANE ROBERTS MD REPORT IS CONFIDENTIAL AND NOT TO BE RELEASED WITHOUT AUTHORIZATION [facility] [address] [place], [place] [address] Signed from the ileocecal valve proper. On the basis of these findings and the unusual presentation of obstruction at the ileum, ileocecal resection was deemed advisable. A segment of bowel clearly viable proximal to the ileocecal valve was demarcated approximately 8 inches or so. Mesentery corresponding to this area in the proximal ascending colon was identified and the mesentery scored with electrocautery. Sequential application of hemostats allowed for vascular pedicle control. The vascular pedicle secured with 0-silk ties. A ELLA 60 mm stapling device was used to transect the proximal ascending colon as well as the ileum as noted. The specimen was opened on the back table and found to have no sign of neoplastic change of the ileum and a bulky somewhat cavernous like broad-based cavity of the cecum itself. It did not specifically appear neoplastic, though the possibility remains. An end-to-side ileocolostomy was undertaken in a two-layer technique with interrupted 3-0 silk suture for the serosal layer and interrupted 3-0 Vicryl for the mucosal layer. Excellent viability of anastomosis was noted. The mesenteric defect was secured with interrupted 3-0 silk suture. The small bowel was once again milked from proximal to distal, allowing for enteric contents to past the anastomosis without leakage or impediment. The abdomen was irrigated with saline solution after gloves were changed. Examination of the gallbladder showed to be markedly distended, dark green in color and quite inflamed actually. A Bookwalter retractor was affixed to the table and the gallbladder was easily made to be in good position despite the small incision in the umbilical area. Small bowel contents were packed separately and the gallbladder grasped with ring clamp and the peritoneum overlying the gallbladder incised with electrocautery, freeing it from the overlying liver quite easily overall. There was no untoward bleeding or bile leak or other problem. The cystic duct was ultimately well identified and triply clipped with large clips. The cystic duct transected and the gallbladder passed for permanent pathology. It was opened by a circulating nurse and found to have innumerable 1 cm and less dark round gallstones. Irrigation was undertaken in the upper abdomen showed no sign of bile leak, bleeding, or other problems. The abdomen was then re-examined and found to have no sign of other problem, inflammation of the bowel was markedly less at this point. The omentum was placed over the abdominal contents. Midline fascia was reapproximated with running #1 PDS suture. Irrigation was undertaken of the subcutaneous space and the skin closed with running subcuticular 3-0 Vicryl. Steri-Strips were applied as was an Acticoat dressing. Following this, the furnace operator did perform bilateral tap block with ultrasound guidance for postoperative analgesic benefit. It is anticipated the patient will be extubated in Electronically Signed By: ABBY BERMUDEZ MD 01/31/23 1030 PATIENT NAME: ZAKI ARZATE OPERATIVE REPORT DATE OF : 39 REPORT #: [id number] PHYSICIAN: ABBY BERMUDEZ MD PCP: VANE ROBERTS MD REPORT IS CONFIDENTIAL AND NOT TO BE RELEASED WITHOUT AUTHORIZATION [address] [address] Signed the operating room, transferred to the recovery room in good condition, having suffered no complications. MD EVELYN Oviedo/ODESSAL /[id number] cc: Cj Roberts Copies: CJ MONTGOMERY ~ Electronically Signed By: ABBY BERMUDEZ MD 01/31/23 1030 PATIENT NAME: ZAKI ARZATE OPERATIVE REPORT DATE OF : 39 REPORT #: [id number] PHYSICIAN: ABBY BERMUDEZ MD PCP: VANE ROBERTS MD REPORT IS CONFIDENTIAL AND NOT TO BE RELEASED WITHOUT AUTHORIZATION
--- NOTE | 2023-01-31 10:30 | HP ---
[facility] [address], [place] [address] Signed ADMISSION DATE: 01/26/2023 REASON FOR ADMISSION: Small bowel obstruction, distal ileum related to fecaloma; gallstones. HISTORY OF PRESENT ILLNESS: This 87-year-old white woman began having problems yesterday including nausea and vomiting and decreased appetite for the past three days. She had no diarrhea and no hematemesis. She is accompanied by her daughter today and presented to the emergency room, where she was thoroughly evaluated by Dr. Corona and found to have abdominal distention. A CT scan was performed, which showed a local fecal impaction of the terminal ileum with small bowel obstruction and multiple dilated proximal small bowel loops with air-fluid levels and mesenteric edema. There is a 3.3 cm lobulated right lower lobe lung mass as well suggestive though not diagnostic of pulmonary malignancy. A small hiatal hernia as well as multiple gallstones were also noted as well as calcific atherosclerotic changes of the iliacs bilaterally. Chronic interstitial lung disease was noted as well. I was consulted through the emergency room and have assumed care of the patient with direct admission to the hospital. PAST MEDICAL HISTORY: Notable for prior breast cancer, on which I operated many years ago. This included partial mastectomy, lymphadenectomy, radiation therapy, and so on. She has had cataract surgery in the past. MEDICATIONS: Her current medicines include melatonin capsules for sleep; potassium chloride; Azulfidine one tablet p.o. q.i.d. for low-grade ulcerative colitis, additionally which I have evaluated and treated; lisinopril for hypertension; and Synthroid for hypothyroidism. 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 She is accompanied by her daughter. She no longer smokes, though did for many years previously. REVIEW OF SYSTEMS: She denies any shortness of breath or chest pain and no hemoptysis is noted. She does have some abdominal pain and has had nausea and previously vomiting. PHYSICAL EXAMINATION: Electronically Signed By: ABBY BERMUDEZ MD 01/31/23 1030 PATIENT NAME: ZAKI ARZATE HISTORY AND PHYSICAL DATE OF : 39 REPORT #: [id number] PHYSICIAN: ABBY BERMUDEZ MD PCP: DEANGELO ROBERTS MD REPORT IS CONFIDENTIAL AND NOT TO BE RELEASED WITHOUT AUTHORIZATION [facility] [address], [place] [address] Signed GENERAL: A thin white woman, who looks to be acutely uncomfortable. VITAL SIGNS: Temperature is 97.5, pulse 85, blood pressure 136/59, and O2 saturations 99% on 2 L nasal cannula oxygen. Notably, the patient uses home oxygen at night on occasion. NECK: Trachea is midline. CHEST: Shows distant breath sounds. There is no wheezing. ABDOMEN: Mildly distended, but soft. There is no palpable mass. I see no ascites. EXTREMITIES: Show no clubbing, cyanosis, or edema. LABORATORY STUDIES: Show white count of 18.1, hematocrit 43, and platelets are 409,000. Chem-profile shows sodium of 127, potassium 4.4, chloride 91, creatinine 1.39, and glucose 163. Alkaline phosphatase 96. Urinalysis, abnormal for 4-6 white cells per high-power field. Serologic test shows no evidence of coronavirus or influenza. RADIOGRAPHIC DATA: Imaging studies were reviewed including a chest x-ray, which shows no sign of pleural effusion, somewhat flattened diaphragms and a fine reticular infiltrate bilaterally suggestive of chronic disease. A lung mass is not readily apparent on casual observation. CT scan was examined in detail confirming a right posterolateral lung mass suggestive of malignancy without associated infusion particularly. Liver appears normal. Both kidneys are present and normal. The gallbladder is distended with multiple gallstones. Dilated loops of small bowel are also noted. 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 ASSESSMENT: The patient has small bowel obstruction related to fecaloma. This does not appear to be concordant to a gallstone ileus, though admittedly the gallbladder does have multiple small gallstones. She likely will need operative resection of this area or manipulation in someway to free the obstruction. Whether there may be a neoplasm accounting for the obstruction secondarily gathering a fecaloma is uncertain, but certainly considered. The risk of operation are increased in her case based on underlying lung disease and atherosclerotic disease; bleeding, infection, anastomotic failure for sections required and other unforeseen complications were also acknowledged and discussed with the patient and her daughter. Additionally, her right lower lobe lung mass will need evaluation and treatment, but not at this time and it is unlikely that this accounts for current situation in any way. She is at increased risk for primary lung cancer on the basis of her distant history of heavy smoking. Electronically Signed By: ABBY BERMUDEZ MD 01/31/23 1030 PATIENT NAME: ZAKI ARZATE HISTORY AND PHYSICAL DATE OF : 39 REPORT #: [id number] PHYSICIAN: ABBY BERMUDEZ MD PCP: DEANGELO ROBERTS MD REPORT IS CONFIDENTIAL AND NOT TO BE RELEASED WITHOUT AUTHORIZATION [address] [address] Signed MD EVELYN Oviedo/MODL /[id number] cc: MD Cj Rogers [place] Copies: LITZY MONROE DMD, PHONG ~ Electronically Signed By: ABBY BERMUDEZ MD 01/31/23 1030 PATIENT NAME: ZAKI ARZATE HISTORY AND PHYSICAL DATE OF : 39 REPORT #: [id number] PHYSICIAN: ABBY BERMUDEZ MD PCP: DEANGELO ROBERTS MD REPORT IS CONFIDENTIAL AND NOT TO BE RELEASED WITHOUT AUTHORIZATION
--- NOTE | 2023-01-31 10:42 | NUR ---
WORKED WITH PT. AMBULATED IN HALLWAY FOR A SECOND TIME. RETURNS TO ROOM, UP IN RECLINER. IVF RESTARTED AND NG BACK TO WALL SUCTION
--- NOTE | 2023-01-31 11:57 | NUR ---
SPOKE TO PATIENT ABOUT THE DISCHARGE PLAN. PATIENT PLANS TO GO HOME WTITH FAMILY AND FRIENDS THAT WILL HELP OUT NEEDED. NO CHANGE IN THE DISCHARGE PLAN.PATIENT USES OXYGEN BY [facility] [place]. PATIENT WOULD ALSO LIKE HOME HEALTH AT DISCHARGE.
--- NOTE | 2023-01-31 12:14 | PATH ---
[facility] [address] [place], [place] [address] Signed SPECIMEN(S): A ILEUM CECUM SPECIMEN(S): B GALLBLADDER SPECIMEN SOURCE: A. ILEUM CECUM B. GALLBLADDER CLINICAL HISTORY: SBO at ileum FINAL PATHOLOGIC DIAGNOSIS: A. Ileum and cecum: - Ulcerated cecum with acute bowel wall inflammation and abscess. - Focal acute mucosal and bowel wall inflammation and ulceration at the proximal margin. - Benign vermiform appendix. - Incidental benign pericolonic lymph nodes with reactive histologic features. B. Gallbladder, cholecystectomy: - Chronic calculous cholecystitis. JVR:[facility]:C2NR MICROSCOPIC EXAMINATION: Histologic sections of all submitted blocks are examined by light microscopy. These findings, together with the gross examination, support the pathologic diagnosis. GROSS DESCRIPTION: A. The specimen, labeled and designated "Kameron, L, " and designated on the requisition "ileum and cecum," is received in formalin and consists of a portion of right colon, terminal ileum with an attached appendix and pericolonic adipose tissue. The right colon is 7.5 cm in length and has an average internal circumference of 9.5 cm. The terminal ileum is 11.8 cm in length and has an average internal circumference of 5.5 cm. The appendix measures 3.1 x 0.7 cm. The serosal surface is pink and smooth. Upon opening the terminal ileum displays a pink-red ulcerated area with green-yellow plaque-like material measuring 6.5 x 4.7 cm. This ulcerated area abuts the ileocecal valve, is 5.2 cm from the distal resection margin, and 7.4 cm from the proximal resection margin. The small bowel proximal to this area is red and granular with a decreased folding pattern. PATIENT NAME: ZAKI ARZATE PATHOLOGY DATE OF : 39 REPORT #: [id number] PHYSICIAN: DI PATHOLOGY PCP: DEANGELO ROBERTS MD REPORT IS CONFIDENTIAL AND NOT TO BE RELEASED WITHOUT AUTHORIZATION [facility] [address], [place] [address] Signed The right colon displays a granular mucosa with a decreased folding pattern and an average wall thickness of 1.2 cm. Sectioning through the appendix reveals a 0.2 cm lumen, pink finely granular mucosa and an average wall thickness of 0.4 cm. The terminal ileum has an average wall thickness of 0.7 cm. Two possible lymph nodes are grossly identified. Dental Technician Apprentice sections are submitted in eight cassettes. Cassette Summary: (A1) proximal resection margin, shave (A2) distal resection margin, shave (A3-A4) ulcerated area at terminal ileum to uninvolved small bowel (A5) granular mucosa of small bowel proximal to ulcerated area (A6) uninvolved large bowel (A7) appendix (A8) two possible lymph nodes, each bisected one arbitrarily inked B. The specimen, labeled and designated "Ellis Melo, gallbladder," is received in formalin and consists of Specimen: Previously opened gallbladder. Dimensions: 6.6 x 3.5 x 1.5 cm. Serosa: Yellow-green and smooth. Cystic Duct: Reinked, unobstructed. Calculi: Multiple black smooth, firm stones, aggregate measurement 4.8 x 4.5 x 1.0 cm. Mucosa: Green-black and velvety. Wall thickness: 0.3 cm. Lymph node: No pericystic lymph nodes are grossly identified. Additional: None. Dental Technician Apprentice sections are submitted in (B1). FB (under the direct supervision of a pathologist) The Gross Description was prepared using a voice recognition system. The report was reviewed for accuracy; however, sound-alike word errors, addition and/or deletions may occur. If there is any question about this report, please contact Client Services. PERFORMING LABORATORY: Technical component was performed by [facility], [address] [place] [id number] (CLIA# [id number]). Professional interpretation was performed by [facility], [address] [place] [address], [place] [address] (CLIA#: [id number]). Diagnostician: Riley Hopkins MD PATIENT NAME: ZAKI ARZATE PATHOLOGY DATE OF : 39 REPORT #: [id number] PHYSICIAN: ID STONE PCP: DEANGELO ROBERTS MD REPORT IS CONFIDENTIAL AND NOT TO BE RELEASED WITHOUT AUTHORIZATION [facility] [address] [place] [address] [place], [place] [address] Signed Pathologist Electronically Signed 01/31/2023 Copies: ~ PATIENT NAME: ZAKI ARZATE PATHOLOGY DATE OF : 39 REPORT #: [id number] PHYSICIAN: DI PATHOLOGY PCP: DEANGELO ROBERTS MD REPORT IS CONFIDENTIAL AND NOT TO BE RELEASED WITHOUT AUTHORIZATION
--- NOTE | 2023-01-31 12:29 | NUR ---
Sitting up in recliner, visiting with family member. Dr. Escalante pulled NG tube. Continues on without any nausea or increased abdominal pain at this time. Denies needs. Call light in reach.
[2023-01-31 12:41] LABS: ANION GAP 12.8 (7-21); BUN/CREATININE RATIO 19.4 (6.0-28.6); CALCIUM 8.4 mg/dL (8.5-10.1); CREATININE, SERUM 0.67 mg/dL (0.55-1.02); MAGNESIUM 1.4 mg/dL (1.8-2.4); POTASSIUM 3.8 mmol/L (3.5-5.1)
[2023-01-31 13:19] VITALS: BP 154/95
--- NOTE | 2023-01-31 13:45 | NUR ---
Sitting up in chair. Ambulates to BR with 1 person assist and walker. States she will call when done.
--- NOTE | 2023-01-31 13:47 | NUR ---
AM VISIT. ACCOMPANIED PATIENT AND PHYSICAL THERAPY ON WALK AROUND HALLWAY. VISITED WITH PT WHILE WALKING. PT ORIENTED TO COMMON CONNECTIONS. OVERALL IN GOOD SPIRITS.
--- NOTE | 2023-01-31 14:36 | NUR ---
ASSIST TO BED FROM RECLINER, STANDBY ASSIST. INFORMED PT STAFF WILL BE IN THIS AFTERNOON TO ASSIST HER TO WALK IN [place] AGAIN. VERBALIZES UNDERSTANDING. CALL LIGHT IN REACH, BED RAILS UP x2.
--- NOTE | 2023-01-31 17:03 | NUR ---
AMBULATED IN HALLWAY WITH STAFF. CONTINUES WITHOUT NAUSEA OR PAIN SINCE NG TUBE DC'D. NO PASSING FLATUS THIS AFTERNOON. ENCOURAGE TO CONTINUE TO AMBULATE IN HALLS AND NOTIFY STAFF IMMEDIATELY WITH NAUSEA OR INCREASING PAIN. VERBALIZES UNDERSTANDING.
[2023-01-31 17:12] VITALS: BP 162/72
--- NOTE | 2023-01-31 18:07 | NUR ---
Remains without nausea, abdominal pain. hypoactive bowel sounds this evening. Ambulates in hallway 3 times around. Returns to room, no further flatus this afternoon. Encouraged to continue ambulation.
--- NOTE | 2023-01-31 19:25 | NUR ---
RECEIVED REPORT FROM DAY SIFT NURSE. PT RESTING COMFORTABLY IN BED. O2 IN PLACE AT 3L. BREATHING EVEN AND UNLABORED. SAFETY PRECAUTIONS IN PLACE. NO NEEDS AT THIS TIME. WILL CONTINUE TO MONITOR.
--- NOTE | 2023-01-31 21:35 | NUR ---
PATIENT CALLED TO USE THE BATHROOM. SBA. PATIENT AMBULATED AROUND THE NURSE'S STATION X1. PATIENT IS BACK IN BED. SCD'S AND O2 IN 3L VIA NC ARE ON. NO OTHER NEEDS AT THIS TIME.
--- NOTE | 2023-02-01 00:13 | NUR ---
PT LYING IN BED. BREATHING EVEN AND UNLABORED. O2 IN PLACE. CALL LIGHT WITHIN REACH. SAFETY PRECAUTIONS IN PLACE. WILL CONTINUE TO MONITOR.
--- NOTE | 2023-02-01 03:17 | NUR ---
walked pt to bathroom. complains of left shoulder pain, will ask primary RN. Voided 300 ml
[2023-02-01 03:40] VITALS: BP 136/53
--- NOTE | 2023-02-01 07:39 | NUR ---
REPORT RECEIVED FROM VALENTINO CALDERON. ASSISTED PT UP TO RESTOOM, SBA FWW. PT STATES SHE WAS A LITTLE DISORIENTED UPON AWAKENING AND THAT HAS NEVER HAPPENED BEFORE. BUT ALSO SLEPT HARDER THAN SHE HAS IN THE PAST.
--- NOTE | 2023-02-01 08:54 | NUR ---
PT AMB IN [place] WITH THIS RN 2 FULL LAPS. AGREEABLE TO AT LEAST 1 LAP EVERY 2 HOURS. TOLERATED WELL THOUGH A LITTLE SOB BY THE END. ON 3LNC. 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 BT HYPOACTIVE, LUNGS CLEAR, HR REGULAR WITH MURMUR HEARD. ABD TENDER ONLY ON R MID
[2023-02-01 09:27] VITALS: BP 132/52
--- NOTE | 2023-02-01 10:40 | NUR ---
ROUNDED WITH DR BERMUDEZ. ADVANCED TO FULL LIQ. WILL AMB AGAIN AT 1100.
--- NOTE | 2023-02-01 11:00 | NUR ---
Spoke with pt, she is walking in the ewing. Pt states she is feeling better, feels good to walk. Denies needs at this time.
--- NOTE | 2023-02-01 11:41 | NUR ---
PT WALKED 2 LAPS IN [place] AGAIN. TOLERATED WELL. SOB BY THE END BUT RECOVERS QUICKLY. ORDERED SOME CREAM OF CHICK FOR LUNCH.
--- NOTE | 2023-02-01 12:40 | NUR ---
PT WALKED IN HALLS WITH PIECE MARKER SMALL ARMS. BACK IN ROOM, SITTING UP IN CHAIR, EATING LUNCH.
[2023-02-01 13:27] VITALS: BP 146/52
--- NOTE | 2023-02-01 13:30 | NUR ---
PT SITTING IN CHAIR LISTENING TO MUSIC. DENIES CONCERNS. CALL LIGHT IN REACH.
--- NOTE | 2023-02-01 14:56 | NUR ---
PT APPEARED TO BE SLEEPING BUT OPENED EYES AT MY APPROACH. ALERT AND ORIENTED. TALKED OF NEEDING TO WALK AT REGUALAR INTERVALS IN ORDER TO GAIN STRENGTH NECESSARY TO GO HOME. CONSENTED TO PRAYER. PRAYED FOR STRENGTH AND ENDURANCE TO DO WHAT IS NECESSARY.
--- NOTE | 2023-02-01 15:33 | NUR ---
PT AMB IN [place] X2 WITH FWW. TOLERATED WELL ALTHOUGH WENT SLOWER THIS TIME. TOLERATED CREAM OF CHICK FOR LUNCH WITH NO NOTED BLOATING OR DISCOMFORT. PASSING SMALL AMT OF FLATUS.
--- NOTE | 2023-02-01 16:38 | NUR ---
PATIENT HAS VISITORS. IT IS HER DAUGHTER AND GRAND DAUGHTER.
--- NOTE | 2023-02-01 17:15 | NUR ---
RECEIVED REPORT FROM SAMANTHA AVELAR. PT IS RESTING IN BED COMFORTABLY. CALL LIGHT WITHIN REACH. NO NEEDS VOICED AT THE MOMENT.
--- NOTE | 2023-02-01 18:14 | NUR ---
ROUNDED ON PT. PT SITTING IN CHAIR EATING. NO NEEDS VOICED. CALL LIGHT WITHIN REACH.
[2023-02-01 18:26] VITALS: BP 160/63
--- NOTE | 2023-02-01 19:32 | NUR ---
shift report recieved from Audrey. Evelyn is resting with eyes closed, appears comfortbale, no noted distess, IV fluid infusing @ 85/h.
[2023-02-01 20:19] VITALS: BP 168/68
--- NOTE | 2023-02-01 21:30 | NUR ---
ASSESSMENT COMPLETE, MILD ABDOMINAL DISCOMFORT AND GIVEN TYLENOL PRIOR TO BEDTIME. ASSISTED UP TO THE BATHROOM, USING FWW WITH STAND BY ASSIST. SHE IS STILL FELLING A LITTLE WEAK. VOIDED 200ML WITHOUT DIFFICULTY. CONTINUES TO PASS FLATUS AND BT'S ARE ACTIVE. STATES THAT SHE DOES NOT FEEL REAL HUNGRY YET AND THE SOUP SHE HAD FOR DINNER DID NOT SETTLE WELL.
--- NOTE | 2023-02-02 01:00 | NUR ---
THIS RN TO ASSUME CARE OF PT. REPORT RECEIVED FROM OFF GOING RN. PT LYING IN BED RESTING WITH EYES CLOSED. RESPIRATIONS EVEN. CALL LIGHT IN REACH.
--- NOTE | 2023-02-02 01:59 | NUR ---
CALL LIGHT ANSWERED. PT UP TO BR WITH FWW AND SBA TO VOID AND HAVE XL LIQUID BM. BACK TO BED, CARYL WELL. GAIT STEADY. ASSESSMENT COMPLETE. PT DENIES PAIN OR NAUSEA. BOWEL TONES ACTIVE. ABD MILDLY DISTENDED. MIDLINE DRESSING INTACT. SCD'S IN PLACE. NEW BAG IVF INFUSING PER ORDER. FRESH WATER PROVIDED. NO FURTHER NEEDS.
--- NOTE | 2023-02-02 02:57 | NUR ---
PT RESTING IN BED WITH EYES CLOSED. RESPIRATIONS EVEN. CALL LIGHT IN REACH.
[2023-02-02 04:43] VITALS: BP 161/75
--- NOTE | 2023-02-02 04:47 | NUR ---
CALL LIGHT ANSWERED, pt UP SBA WITH FWW TO VOID AND BACK TO BED, STEADY ON FEET. 3LNC IN PLACE, CHRONIC PER pt, VSS. I&O'S ALSO COMPLETED. CALL LIGHT IN REACH, NO ADDITIONAL NEEDS OR CONCERNS VERBALZIED. WILL CONTINUE TO MONITOR. IV SITE WNL, FLUIDS INFUSING DIRECTED.
--- NOTE | 2023-02-02 06:33 | NUR ---
PT UP TO BR WITH FWW AND SBA TO VOID. BACK TO BED, CARYL WELL. GAIT STEADY. SCD'S IN PLACE. NO FURTHER NEEDS.
--- NOTE | 2023-02-02 07:10 | NUR ---
RECEIVED REPORT FROM NEVILLE AVELAR. PT IS SLEEPING WITH EYES CLOSED. RESPIRATIONS EVEN AND REGULAR. CALL LIGHT WITHIN REACH.
--- NOTE | 2023-02-02 08:46 | NUR ---
ROUNDED ON PT AND ADMINISTERED MORNING MEDICATION ALONG WITH PRN TYLENOL. PERFORMED ASSESSMENT. PT IS SITTING IN CHAIR EATING BREAKFEAST. NO FURTHER NEEDS VOICED BY THE PATIENT. CALL LIGHT WITHIN REACH.
[2023-02-02 08:56] VITALS: BP 167/70
--- NOTE | 2023-02-02 10:30 | NUR ---
AFTER PATIENT TOOK A SHOWER SHE WANTED TO GO BACK TO BED. SHE DIDN'T WANT TO WASH HER HAIR SHE SAID IT IS BECAUSE IT IS HARD TO TAKE CARE. CLEAN GOWN AND SOCKS.
--- NOTE | 2023-02-02 11:45 | NUR ---
Spoke with pt and she states she is much better. Pt thinks she will dc over the weekend. IM letter given and signed. Texted Dr. Pan and PT is recommending OP PT. Pt. unsure if she wants to do this. 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 Pt feels she can do this on her own as this is what she did after covid. Asked her to speak with Dr. Pan and then decide.
[2023-02-02 13:15] VITALS: BP 177/79
--- NOTE | 2023-02-02 15:48 | NUR ---
PATIENT WALKED TWO AND HALF LAPS AROUND MED SURG.
[2023-02-02 17:33] VITALS: BP 173/69
--- NOTE | 2023-02-02 18:41 | NUR ---
ROUNDED ON PT. PT SITTING IN CHAIR WITH DAUGHTER AT BEDSIDE. NO NEEDS VOICED AT THE MOMENT. CALL LIGHT WITHIN REACH.
--- NOTE | 2023-02-02 19:29 | NUR ---
BEDSIDE REPORT RECEIVED FROM BINA AVELAR, PT RESTING WITH EYES CLOSED, RESP EVEN AND REG.
[2023-02-02 19:57] VITALS: BP 163/79
--- NOTE | 2023-02-02 21:56 | NUR ---
ADMISISTERED PT PM MEDS. WENT TO THE BATHROOM. BACK IN BED WITH BED ALARM ON.
--- NOTE | 2023-02-02 21:59 | NUR ---
NOTED SMALL CLUSTER OF RASH ON BILAT ANTERIOIR THING. WILL NOTIFY PRIMARY RN
--- NOTE | 2023-02-02 22:40 | NUR ---
PT RESTING, AWAKE, ASSESSMENT COMPLETED, PT WITHOUT REQUESTS AT THIS TIME.
--- NOTE | 2023-02-03 00:01 | NUR ---
PT RESTING WITHOUT REQUESTS AT THIS TIME.
--- NOTE | 2023-02-03 02:05 | NUR ---
PT ASLEEP, RESP EVEN AND REGULAR WITHOUT DISTRESS.
--- NOTE | 2023-02-03 04:00 | NUR ---
PT'S DAUGHTER CALLED UNIT TO STATE HER MOTHER (PT) NEEDED HELP UP TO BR AND COULDN'T FIND HER CALL AMINTA COFFEY INTO ROOM TO ASSIST PT UP TO VOID, PT WITHOUT OTHER REQUESTS, BACK TO BED RESTING.
[2023-02-03 06:00] VITALS: BP 149/69
--- NOTE | 2023-02-03 06:00 | NUR ---
PT AWAKEN FOR AM MED AND VS, ASSISTED UP TO BR TO VOID WITH FFW, PT DENIES NEED FOR PAIN MED, BACK TO BED, CALL LIGHT IN REACH, PT RESTING, OXYGEN IN PLACE AND CONTS AT 3L/NC.
--- NOTE | 2023-02-03 06:00 | NUR ---
PT REMAINS WITH CLEAR BUT DIM BREATH SOUNDS AND ACTIVE BTS, ABDOMINAL DRESSING WITH OLD DRIED DRAINAGE, NO PERIPHERAL EDEMA NOTED, PT RESTING.
--- NOTE | 2023-02-03 07:15 | NUR ---
RECEIVED REPORT FROM [facility] NURSE. PT APPEARS TO BE SLEEPING COMFORTABLY, RESPIRATIONS EVEN AND REGULAR. NC 3L IN PLACE.
[2023-02-03] MEDS ORDERED: ACETAMINOPHEN500 MG PO (09:39)
[2023-02-03 10:01] VITALS: BP 133/61
[2023-02-03] MEDS ORDERED: METAMUCIL660 GM PO (10:03)
--- NOTE | 2023-02-03 11:00 | NUR ---
ROUNDED ON PT. PT IS READY FOR D/C. WAITINT ON RIDE TO ARRIVE. SHE IS A/O, RESPIRATIONS EVEN AND REGULAR. SITTING UP IN CHAIR.
--- NOTE | 2023-02-03 11:33 | NUR ---
PATIENT IS SLEEPING IN HER CHAIR SHE IS DRESSED AND PACKED SHE IS JUST WAITING FOR HER RIDE TO COME SO WE CAN WHEEL HER DOWN TO THE FRONT AND HELP HER IN THE CAR IF SHE NEEDS HELP.
--- NOTE | 2023-02-09 02:13 | DS ---
[facility] [address] [place], [place] [address] Signed ADMISSION DATE: 01/26/2023 DISCHARGE DATE: 02/03/2023 REASON FOR ADMISSION: This 87-year-old white woman is well known to me from the past having been treated for chronic ulcerative colitis for many years. She is on azulfidine and well managed without approach. She has a distant history of smoking, but smoking/cessation several years ago. She presented to emergency room with nausea and vomiting and decreased appetite for the preceding three days. She was evaluated by Dr. Cj Montgomery and found to have abdominal distention. A CT scan was performed showing fecal impaction of the terminal ileum with small bowel obstruction proximally. The obstruction appeared to be at the ileocecal valve itself. Incidentally noted was a 3.3 cm lobulated right lower lobe lung mass suggestive of possible malignancy. She also had a small hiatal hernia. 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 She is admitted for further evaluation and care. PERTINENT PHYSICAL EXAMINATION: GENERAL: Showed a thin white woman who looks to be uncomfortable. VITAL SIGNS: Temperature was 97.5, pulse 85, blood pressure 136/59, O2 saturations 99% on 2 L nasal cannula oxygen. The patient does use home oxygen at night on occasion. Trachea was midline. CHEST: Clear. There was no wheeze. ABDOMEN: Mildly distended, but soft. There is no palpable mass. There is no ascites. EXTREMITIES: Show no clubbing, cyanosis, or edema. LABORATORY STUDIES: Showed a white count of 18.1, hematocrit 43, platelets 409,000. Chem profile is normal except for creatinine of 1.39, glucose 163. Alkaline phosphatase was 96. Urinalysis 46, white cells per high-power field. Serologic tests negative for coronavirus or influenza. Chest x-ray was performed showing no sign of pleural effusion, somewhat flattened diaphragms and fine reticular infiltrate bilaterally suggestive of chronic disease. The lung mass was not readily apparent on casual observation. CT scan was reviewed and findings as described. She additionally had extensive cholelithiasis noted in the gallbladder. HOSPITAL COURSE: The patient was admitted, given fluid resuscitation. On January 26 at 7 p.m., she Electronically Signed By: ABBY BERMUDEZ MD 02/09/23 0213 PATIENT NAME: ZAKI ARZATE DISCHARGE SUMMARY DATE OF : 39 REPORT #: [id number] PHYSICIAN: ABBY BERMUDEZ MD PCP: VANE ROBERTS MD REPORT IS CONFIDENTIAL AND NOT TO BE RELEASED WITHOUT AUTHORIZATION [facility] [address], [place] [address] Signed underwent operation which included laparotomy need through a limited circumareolar incision. She was found to have proximal dilation of the small bowel and marked inflammation in particular the distal small bowel. Palpable rubbery texture of the ileocecal valve area and impacted stool was also noted. Operation consisted of resection of the terminal ileum and cecum with a end-to-side ileocolostomy. The gallbladder was quite markedly distended, inflamed and packed with stones and open cholecystectomy was also performed. Postoperatively, she was maintained with an NG tube overnight which was subsequently removed and advanced on a liquid diet. She did have findings suggestive of ileus likely related to "stripping" of the small bowel to decompress it during course of initial operation. Nasogastric tube was replaced. Bowel rest reinitiated. She had progressive improvement with prompt resumption of bowel function and nasogastric tube was removed. Her diet was advanced from clear liquid to full liquids and ultimately a regular solid diet, which she tolerated well. By day of discharge, she is ambulating well. Incision is healing well. She has only minimal incisional pain well managed by Tylenol alone. As regards to the right pulmonary lesion, a formal evaluation to include CT scan or possibly PET scan CT will be undertaken. She is well aware of this plan also. DISCHARGE MEDICATIONS: Will include Tylenol 1000 mg p.o. q.6 hours as needed for incisional pain #60. She will resume her usual medications includin. Azulfidine 500 mg p.o. t.i.d. 2. Lisinopril 10 mg p.o. daily. 3. Synthroid 100 mcg p.o. daily. 4. Fluticasone nasal haler b.i.d. 5. Melatonin 3 mg tablet p.o. at bedtime. DISCHARGE DIAGNOSES: 1. Small bowel obstruction related to fecal impaction and ileocecal valve, status post ileal resection and cecal resection with primary anastomosis; final pathology showing no evidence of neoplasm, but inflammatory changes noted. 2. Long-standing ulcerative colitis managed nonoperatively (azulfidine). 3. History of heavy smoking with smoking cessation in the past few years. 4. Hypothyroidism. 5. Hypertension. 6. Newly discovered right 3.9 cm lower lobe right-sided lung lesion (evaluation ongoing and pending). Electronically Signed By: ABBY BERMUDEZ MD 02/09/23 0213 PATIENT NAME: ZAKI ARZATE DISCHARGE SUMMARY DATE OF : 39 REPORT #: [id number] PHYSICIAN: ABBY BERMUDEZ MD PCP: VANE ROBERTS MD REPORT IS CONFIDENTIAL AND NOT TO BE RELEASED WITHOUT AUTHORIZATION [facility] [address] [place] [address] Signed FOLLOWUP PLAN: She will call on Sunday to see me back in the office in 2-3 weeks at which point we will reinitiate a plan of evaluation for her pulmonary issue. MD EVELYN Oviedo/SOTO /[id number] cc: Dr. Vane Montgomery Copies: CJ MONTGOMERY ~ Electronically Signed By: ABBY BERMUDEZ MD 02/09/23 0213 PATIENT NAME: ZAKI ARZATE DISCHARGE SUMMARY DATE OF : 39 REPORT #: [id number] PHYSICIAN: ABBY BERMUDEZ MD PCP: VANE ROBERTS MD REPORT IS CONFIDENTIAL AND NOT TO BE RELEASED WITHOUT AUTHORIZATION
== END 2023-02-03 11:55 | disposition home or self-care (01) | DRG 330 ==
LOC: ED 10:53 → MS 13:05 → CCU 19:27 → MS 01-28 14:10
PROVIDERS: Internal Medicine; ADMIT Surgery; ATTEND Surgery
PROC: 0DTB0ZZ Resection of Ileum, Open Approach (ICD-10-PCS; 2023-01-26)
PROC: 0FT40ZZ Resection of Gallbladder, Open Approach (ICD-10-PCS; 2023-01-26)
PROC: 0DTH0ZZ Resection of Cecum, Open Approach (ICD-10-PCS; 2023-01-26)
PROC: 0D9670Z Drainage of Stomach with Drainage Device, Via Natural or Artificial Opening (ICD-10-PCS; 2023-01-26)
PROC: 0D1B0ZK Bypass Ileum to Ascending Colon, Open Approach (ICD-10-PCS; principal; 2023-01-26 16:15)
DX: K56.609 Unspecified intestinal obstruction, unspecified as to partial versus complete obstruction (principal); C34.31 Malignant neoplasm of lower lobe, right bronchus or lung; K51.914 Ulcerative colitis, unspecified with abscess; K91.89 Other postprocedural complications and disorders of digestive system; K56.41 Fecal impaction; R91.8 Other nonspecific abnormal finding of lung field; K44.9 Diaphragmatic hernia without obstruction or gangrene; K80.20 Calculus of gallbladder without cholecystitis without obstruction; E03.9 Hypothyroidism, unspecified; I10 Essential (primary) hypertension; R91.1 Solitary pulmonary nodule; Z20.822 Contact with and (suspected) exposure to COVID-19; D72.829 Elevated white blood cell count, unspecified; K56.7 Ileus, unspecified; E86.0 Dehydration; D36.0 Benign neoplasm of lymph nodes; R79.89 Other specified abnormal findings of blood chemistry; K59.89 Other specified functional intestinal disorders; I70.0 Atherosclerosis of aorta; Z79.51 Long term (current) use of inhaled steroids; Z90.49 Acquired absence of other specified parts of digestive tract; Z79.899 Other long term (current) drug therapy; Z87.891 Personal history of nicotine dependence; Z99.81 Dependence on supplemental oxygen; Z85.3 Personal history of malignant neoplasm of breast; Z98.890 Other specified postprocedural states; Z98.42 Cataract extraction status, left eye; Z98.41 Cataract extraction status, right eye; Z79.890 Hormone replacement therapy; Z90.11 Acquired absence of right breast and nipple; Z92.3 Personal history of irradiation
CPT/HCPCS: 00840; 36415; 71045; 74018; 74176; 76942; 80048; 80053; 81001; 83690; 83735; 85025; 87502; 88304; 88307; 93005; 93010; 94760; 96374; 96375; 97110; 97116; 97161; 97530; 99285-25; A9270; C9113; C9803; J0131; J0690; J0780; J1100; J1644; J1885; J2001; J2270; J2405; J2795; J3010; J3475; J3490; J7030; J7121; U0002

== ENCOUNTER 2023-08-17 06:50 | Day surgery (SDC) | payer MEDICARE, OTHER ==
[2023-08-14 10:53] VITALS: BP 130/73
[~2023-08-17] VITALS: Ht 165.1 cm; Wt 48.6 kg
[~2023-08-17 06:50] MED LIST changes: +ACETAMINOPHEN500 MG PO; +FLUTICASONE-SA1 EAC4 INH; +LACTATED RINGER'S 1,000 ML IV SCH; +METAMUCIL660 GM PO; +STOOL SOFTENER100 MG PO
[2023-08-17] MEDS ORDERED: KETOROLAC TROMETHAMINE 30 MG/ML VIAL ONE (07:00)
[2023-08-17] MEDS ORDERED: ondansetron HCL 4 MG/2 ML VIAL ONE (07:00)
[2023-08-17] MEDS ORDERED: IBLOOD GLUCOSE TEST STRIP 1 EA TEST VI PRN (07:00)
[2023-08-17] MEDS ORDERED: propofoL 200 MG/20 ML VIAL ONE (07:00)
[2023-08-17] MEDS ORDERED: LACTATED RINGER'S 1,000 ML IV ONE (07:00)
[2023-08-17] MEDS ORDERED: METOCLOPRAMIDE HCL 10 MG/2 ML SDV ONE (07:00)
[2023-08-17] MEDS ORDERED: DEXAMETHASONE SOD PHOS 4 MG/ML VIAL ONE (07:00)
[2023-08-17] MEDS ORDERED: LIDOCAINE HCL 1% 5 ML SDV INJ ONE (07:00)
[2023-08-17] MEDS ORDERED: FAMOTIDINE 20 MG/ 2 ML VIAL ONE (07:00)
[2023-08-17] MEDS ORDERED: fentaNYL citrate 100 MCG/2 ML VIAL ONE (07:00)
[2023-08-17 07:05] VITALS: BP 159/70
[2023-08-17] MEDS ORDERED: ALBUTEROL/IPRATROPIUM 3 ML NEB INH ONE (07:30)
--- NOTE | 2023-08-17 07:32 | NUR ---
ROUNDS. PT RECEIVING NURSING CARE. DID NOT INTERRUPT. PROVIDED SILENT PRAYER.
[2023-08-17] MEDS ORDERED: CEFAZOLIN SODIUM 2 GM/20 ML SYR IV ONE (08:30)
[2023-08-17] MEDS ORDERED: IBUPROFEN600 MG PO (10:09)
[2023-08-17] MEDS ORDERED: ACETAMINOPHEN500 MG PO (10:10)
[2023-08-17] MEDS ORDERED: OXYCODON-ACETA1 EAC2 PO (10:10)
[2023-08-17] MEDS ORDERED: ACETAMINOPHEN 500 MG TAB PO PRN (10:15)
[2023-08-17] MEDS ORDERED: OXYCODONE/APAP 7.5/325 TAB PO PRN (10:15)
[2023-08-17] MEDS ORDERED: ondansetron HCL 4 MG/2 ML VIAL IV PRN (10:15)
[2023-08-17] MEDS ORDERED: IBUPROFEN 600 MG TAB PO PRN (10:15)
[2023-08-17] MEDS ORDERED: LACTATED RINGER'S 1,000 ML IV SCH (10:15)
[2023-08-17 10:22] VITALS: BP 120/61
--- NOTE | 2023-08-17 11:36 | NUR ---
08/17/23 1136 Isabell Hernández 9493 PT ARRIVED TO PACU SITTING IN HIGH FOWLERS AND COUGHING. PT MOVING HER HAND UP BY HER FACE AND 10L O2 VIA MASK IN PLACE. PT EYES REMAIN CLOSED. PT MOANING AND CONTINUES TO COUGHING. PT UNABLE TO FOLLOW COMMANDS AND REFLECTOR DRILLER AND DEBURRER AND RN BOOST PT UP IN BED. 0955 PT OPENS HER EYES AND RN HELPS REST PT ARM DOWN AND BP ABLE TO RUN. COUGHING DECREASED. RN TRYING TO REORIENT PT TO PACU AND ENCOURAGES DEEP BREATHING. PT DROWSY. 0956 O2 MASK REMOVED AND 4L NC IN PLACE. PT REORIENTED TO PACU AND DENEIS PAIN AND NAUSEA. NONPRODUCTIVE COUGH OFF AND ON. 1012 MD AT BEDSIDE TALKING TO PT. PT SIPPING WATER AND DENIES CONCERNS PLAN OF CARE DISCUSSED AND ALL QUESTIONS ANSWERED. O2 DECREASED TO 3L, PT REPORTS USING 2-3L O2 AT HOME. 1025 PT GETTING DRESSED AND SITTING ON EDGE OF BED WITH NO CONCERN. ' 1035 PT SITTING ON EDGE OF BED AND O2 80% AFTER GETTING DRESSED, AFTER SITTING FOR SOME TIME O2 SLOWLY INCREASED TO HIGH 90S ON 3L. 1040 PT DC WITH DAUGHTER AND GRANDSON, DC INSTRUCTIONS GIVEN WITH RX. RN ENCOURAGES PT TO USE O2 AT HOME. ALL QUESTIONS ANSWERED AND PT DC VIA WC TO CAR WITH ALL BELONGINGS.
--- NOTE | 2023-08-17 21:54 | EKG ---
[facility] [address] [facility] [place] [address] Signed Normal sinus rhythm Right bundle branch block Abnormal ECG When compared with ECG of 26-JAN-2023 11:41, T wave inversion now evident in Inferior leads Confirmed by Aida Ortiz MD () on 08/17/2023 9:54:31 PM Electronically Signed By: AIDA ORTIZ MD 08/17/23 2154 PATIENT NAME: ZAKI ARZATE Electrocardiogram DATE OF : 39 PHYSICIAN: AIDA ORTIZ MD REPORT #: [id number] REPORT IS CONFIDENTIAL AND NOT TO BE RELEASED WITHOUT AUTHORIZATION
--- NOTE | 2023-08-19 09:47 | OR ---
[facility] [address] [place], [place] [address] Signed DATE OF OPERATION: 08/17/2023 SURGEON: Abby Bermudez MD PREOPERATIVE DIAGNOSES: Nonresectable advanced right lower lobe lung cancer with probable metastatic disease to right posterolateral chest wall. POSTOPERATIVE DIAGNOSES: 1. Nonresectable advanced right lower lobe lung cancer with probable metastatic disease to right posterolateral chest wall. 2. Two contiguous masses, right lateral chest wall, contiguous and deep. 3. Additional soft tissue nodule, right mid posterior thorax. PROCEDURES: 1. Excision of soft tissue masses (malignant), right lateral chest wall, excision size 12 cm x 6 cm with layered wound closure. 2. Excision of posterior thorax soft tissue mass 3 cm in size. ANESTHESIA: Local with monitored anesthesia care, Abby Lane CRNA and local 13 mL of 0.25% Marcaine with epinephrine. INDICATION: This 88-year-old white woman is a patient of Vane Roberts. She is known to me from the past 30 years essentially. The patient has had biopsy-proven right lower lobe lung cancer that is unresectable on the basis of her underlying advanced lung disease. She maintains a room air preoperative O2 saturation of about 88% to 90%. She is considered unresectable on the basis of her underlying lung disease and has been evaluated by Dr. Esposito. Two nodules were identified in the right lateral chest wall, highly suspect for metastatic lung cancer. In the meantime, another small nodule has occurred in the right posterior thorax closer to the midline. She is referred by Dr. Esposito for excision of both these lesions, which are increasingly symptomatic for her. The risk of bleeding, infection, cosmetic deformity, and so forth were reviewed with her. She understands and wished to proceed. FINDINGS: The two nodules in the lateral chest wall were almost contiguous. Wide resection was undertaken down to the fascia including the serratus anterior muscle. The wound was closed in layers with interrupted 2-0 Vicryl and closure of the skin with 3-0 Vicryl. Electronically Signed By: ABBY BERMUDEZ MD 08/19/23 0947 PATIENT NAME: ZAKI ARZATE OPERATIVE REPORT DATE OF : 39 REPORT #: [id number] PHYSICIAN: ABBY BERMUDEZ MD PCP: VANE ROBERTS MD REPORT IS CONFIDENTIAL AND NOT TO BE RELEASED WITHOUT AUTHORIZATION [facility] [address] [place], [place] [address] Signed An additional nodule which resulted in a 3 cm excision size was also accomplished in a similar way. DESCRIPTION OF PROCEDURE: The patient was brought to the operating room, placed in the lateral decubitus position right side up. Careful padding of her pressure points was undertaken. Preoperative antibiotic Ancef was given. The right lateral posterior chest wall was prepared with a chlorhexidine solution and draped sterilely. The two large nodules, which were probably 3 cm each were nearly contiguous. A local block was undertaken with 0.25% Marcaine with epinephrine as well as an additional nodule more posteriorly located. The nodules were marked and resection area was outlined. Elliptical incision was undertaken of the two larger nodules with a 15 blade with a wide margin and excising the skin that was contiguous with the nodules. Dissection was carried through the dermis with electrocautery and soft tissue of the chest wall excised in continuity. Dissection was taken down to the deep thoracic layer where serratus anterior muscle was identified and freed from the offending neoplasms. Complete excision was undertaken. The excision size was greater than 12 cm in length and 6 cm in width. Electrocautery was used for hemostasis. The wound was closed in layers with interrupted 2-0 Vicryl and running subcuticular 3-0 Vicryl for the skin. Steri-Strips were later applied. The posterior nodule was similarly excised and measured about 3 cm in total length. It too was closed in layers. Steri-Strips were applied as well. Acticoat dressings were applied to both excision sites. The patient was ultimately transferred to the recovery room in good condition having suffered no known complications. Sponge, needle, and instrument counts reported as correct x3. Blood loss was less than 10 mL. Abby Bermudez MD /MODL /[id number] cc: MD Dr. Vane Brown Electronically Signed By: ABBY BERMUDEZ MD 08/19/23 0947 PATIENT NAME: ZAKI ARZATE OPERATIVE REPORT DATE OF : 39 REPORT #: [id number] PHYSICIAN: ABBY BERMUDEZ MD PCP: VANE ROBERTS MD REPORT IS CONFIDENTIAL AND NOT TO BE RELEASED WITHOUT AUTHORIZATION [address] [address] Signed Copies: LITZY ESPOSITO MD ~ Electronically Signed By: ABBY BERMUDEZ MD 08/19/23 0947 PATIENT NAME: ZAIK ARZATE OPERATIVE REPORT DATE OF : 39 REPORT #: [id number] PHYSICIAN: ABBY BERMUDEZ MD PCP: VANE ROBERTS MD REPORT IS CONFIDENTIAL AND NOT TO BE RELEASED WITHOUT AUTHORIZATION
--- NOTE | 2023-08-21 16:19 | PATH ---
[facility] [address] [place], [place] [address] Signed SPECIMEN(S): A RIGHT POSTERIOR LATERAL CHEST WALL SPECIMEN(S): B LEFT POSTERIOR THORAX SPECIMEN SOURCE: A. RIGHT POSTERIOR LATERAL CHEST WALL B. LEFT POSTERIOR THORAX CLINICAL HISTORY: Nodules. Metastatic malignant neoplasm of skin. FINAL PATHOLOGIC DIAGNOSIS: A. Right posterior lateral chest wall: - Intradermal poorly-differentiated carcinoma (see comment). B. Left posterior thorax: - Intradermal poorly-differentiated carcinoma (see comment). COMMENT: The tumor is centered within the deep dermis and subcutaneous tissues. 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 The patient's history of clinical metastatic carcinoma with history of right lung squamous cell carcinoma is noted. These features are consistent with the history. As part of [facility]' Quality Improvement Program, this case was reviewed by another member of our pathology staff. JVR:DELANO:dave MICROSCOPIC EXAMINATION: Histologic sections of all submitted blocks are examined by light microscopy. These findings, together with the gross examination, support the pathologic diagnosis. Immunostains were performed with appropriate controls on block A1 and show the following: - Cytokeratin AE1/AE3: Positive in tumor cells. - Cytokeratin 5/6: Positive in tumor cells. - p63: Positive in rare tumor nuclei. JVR:clv GROSS DESCRIPTION: A. The specimen, labeled and designated "Eli, L, " and designated on the requisition "right posterior lateral chest wall," is received in formalin and consists of 7.6 x 3.9 cm unoriented ellipse of PATIENT NAME: ZAKI BENITEZ PATHOLOGY DATE OF : 39 REPORT #: [id number] PHYSICIAN: DI PATHOLOGY PCP: DEANGELO ROBERTS MD REPORT IS CONFIDENTIAL AND NOT TO BE RELEASED WITHOUT AUTHORIZATION [facility] [address] [place], [place] [address] Signed skin that has been excised to a depth of 2.8 cm. The skin surface is pale pink and smooth with a two firm pale-hensley areas of distention that measure 1.5 x 1.4 x 0.7 cm and 1.5 x 1.4 x 0.8 cm and are collectively 0.7 cm from the closest skin and soft tissue resection margin. The peripheral margin is inked blue and the deep margin is inked black. The specimen is serially sectioned perpendicular to the long axis revealing a 3.7 x 2.6 x 2.5 cm pink congested, ill-defined mass that is 0.3 cm from the closest peripheral margin and 0.1 cm from the deep margin. This mass involves the previously described areas of distention. Fringe Knotter sections are submitted in four cassettes. Cassette Summary: (A1) mass to closest peripheral margin and skin (A2-A4) mass to deep soft tissue resection margin, perpendicular (A5-A6) mass to skin B. The specimen, labeled and designated "Ellis Benitez, " and designated on the requisition "additional nodule left posterior thorax," is received in formalin and consists of 2.8 x 2.2 x 1.9 cm portion of yellow-hensley adipose tissue that is partially surfaced a 3.2 x 0.8 cm ellipse of skin. The skin surface is pale pink and smooth. The specimen is inked and sectioned perpendicular to the long axis revealing a 1.4 x 0.9 x 0.8 cm white-hensley firm ill-defined nodule that abuts the blue inked soft tissue resection margin. Fringe Knotter sections are submitted in (B1). FB (under the direct supervision of a pathologist) The Gross Description was prepared using a voice recognition system. The report was reviewed for accuracy; however, sound-alike word errors, addition and/or deletions may occur. If there is any question about this report, please contact Client Services. PERFORMING LABORATORY: Technical component was performed by [facility], [address] [place] [id number] (CLIA# [id number]). Professional interpretation was performed by [facility], [address] [place] [id number] (CLIA#: [id number]). Diagnostician: Riley Hopkins MD Pathologist Electronically Signed 08/21/2023 PATIENT NAME: ZAKI BENITEZ PATHOLOGY DATE OF : 39 REPORT #: [id number] PHYSICIAN: [facility] PCP: DEANGELO ROBERTS MD REPORT IS CONFIDENTIAL AND NOT TO BE RELEASED WITHOUT AUTHORIZATION [address] [address] Signed Copies: ~ PATIENT NAME: ZAKI BENITEZ PATHOLOGY DATE OF : 39 REPORT #: [id number] PHYSICIAN: DI PATHOLOGY PCP: DEANGELO ROBERTS MD REPORT IS CONFIDENTIAL AND NOT TO BE RELEASED WITHOUT AUTHORIZATION
== END 2023-08-17 10:40 | disposition home or self-care (01) ==
LOC: DS 06:50
PROVIDERS: ATTEND Surgery
PROC: 0HB5XZZ Excision of Chest Skin, External Approach (ICD-10-PCS; principal; 2023-08-17 08:55)
DX: C34.31 Malignant neoplasm of lower lobe, right bronchus or lung (principal); C79.2 Secondary malignant neoplasm of skin; J44.9 Chronic obstructive pulmonary disease, unspecified; I10 Essential (primary) hypertension; E03.9 Hypothyroidism, unspecified; Z87.891 Personal history of nicotine dependence
CPT/HCPCS: 00300; 88305; 88341; 88342; 93005; 93010; 94640; J0690; J1100; J1885; J2405; J2704; J2765; J3010; J7121